=== PATIENT | male | born 1955 | race Caucasian/White ===

== ENCOUNTER → 2017-09-17 08:19 | Outpatient (CLI) | payer BC, SELFPAY ==
[2017-09-17 09:22] LABS: Hemoglobin A1c 7.7 % (4.2-6.3)
[2017-09-17 09:34] LABS: Anion Gap 8 (5-15); BUN 16 mg/dL (7-18); BUN/Creat Ratio 19.3 RATIO (10-20); Calcium,Total 8.9 mg/dL (8.5-10.1); Chloride 101 mmol/L (98-107); Creatinine, Serum 0.83 mg/dL (0.70-1.30); EST Glomerular Filtration Rate 99 mL/min (>60); Est Glom Filt Rate - Afr Amer 120 mL/min (>60); Glucose 117 mg/dL (74-106); PSA,Total - Annual Screen 0.26 ng/mL (0.00-4.00); Potassium 4.3 mmol/L (3.5-5.1); Sodium Level 137 mmol/L (136-145)
== END ==
PROVIDERS: Family Provider Family Medicine; PCP Family Medicine; Visit Provider Family Medicine
DX: E11.9 Type 2 diabetes mellitus without complications (principal); Z12.5 Encounter for screening for malignant neoplasm of prostate
CPT/HCPCS: 36415; 80048; 83036; 84153; G0103

== ENCOUNTER → 2018-09-16 07:00 | Outpatient (CLI) | payer BC, SELFPAY ==
[2018-09-16 08:41] LABS: Anion Gap 7 (5-15); BUN 14 mg/dL (7-18); BUN/Creat Ratio 16.1 RATIO (10-20); Calcium,Total 8.7 mg/dL (8.5-10.1); Chloride 100 mmol/L (98-107); Cholesterol 121 mg/dL (200); Creatinine, Serum 0.87 mg/dL (0.70-1.30); EST Glomerular Filtration Rate 93 mL/min (>60); Est Glom Filt Rate - Afr Amer 113 mL/min (>60); Glucose 141 mg/dL (74-106); High Density Lipoprotein 43 mg/dL; Potassium 4.4 mmol/L (3.5-5.1); Sodium Level 136 mmol/L (136-145); Thyroid Stim Hormone (TSH) 2.52 uIU/mL (0.358-3.74); Triglycerides 147 mg/dL; Very Low Density Lipoprotein 29 mg/dL (5-40)
[2018-09-16 09:02] LABS: Hemoglobin A1c 8.1 % (4.2-6.3)
[2018-09-18 09:38] LABS: Vitamin B12 250 pg/mL (211-911)
== END ==
PROVIDERS: Family Provider Family Medicine; PCP Family Medicine; Referring Provider Family Medicine; Visit Provider Family Medicine
DX: E11.40 Type 2 diabetes mellitus with diabetic neuropathy, unspecified (principal); I10 Essential (primary) hypertension; E78.00 Pure hypercholesterolemia, unspecified
CPT/HCPCS: 36415; 80048; 80061; 82607; 83036; 84443

== ENCOUNTER → 2019-02-23 16:53 | Outpatient (CLI) | payer MEDICARE, OTHER, SELFPAY ==
[2019-02-23 18:14] LABS: PSA,Total - Annual Screen 0.34 ng/mL (0.00-4.00)
== END ==
PROVIDERS: Family Provider Family Medicine; PCP Family Medicine; Referring Provider Family Medicine; Visit Provider Family Medicine
DX: Z12.5 Encounter for screening for malignant neoplasm of prostate (principal)
CPT/HCPCS: 36415; 84153; G0103

== ENCOUNTER → 2019-05-22 09:18 | Outpatient (CLI) | payer MEDICARE, OTHER, SELFPAY ==
[2019-05-22 14:07] LABS: Anion Gap 9 (5-15); BUN 19 mg/dL (7-18); BUN/Creat Ratio 20.6 RATIO (10-20); Calcium,Total 8.8 mg/dL (8.5-10.1); Chloride 103 mmol/L (98-107); Cholesterol 136 mg/dL (200); Creatinine, Serum 0.92 mg/dL (0.70-1.30); EST Glomerular Filtration Rate 87 mL/min (>60); Est Glom Filt Rate - Afr Amer 106 mL/min (>60); Glucose 114 mg/dL (74-106); High Density Lipoprotein 48 mg/dL; Potassium 4.2 mmol/L (3.5-5.1); Sodium Level 137 mmol/L (136-145); Triglycerides 108 mg/dL; Very Low Density Lipoprotein 22 mg/dL (5-40)
== END ==
PROVIDERS: Family Provider Family Medicine; PCP Family Medicine; Visit Provider Family Medicine
DX: E11.9 Type 2 diabetes mellitus without complications (principal); E78.00 Pure hypercholesterolemia, unspecified; I10 Essential (primary) hypertension
CPT/HCPCS: 36415; 80048; 80061; 83036

== ENCOUNTER → 2019-05-25 10:27 | Outpatient (CLI) | payer MEDICARE, OTHER, SELFPAY ==
[2019-05-25 12:45] LABS: Vitamin B12 292 pg/mL (211-911)
== END ==
PROVIDERS: Family Provider Family Medicine; PCP Family Medicine; Referring Provider Family Medicine; Visit Provider Family Medicine
DX: E11.40 Type 2 diabetes mellitus with diabetic neuropathy, unspecified (principal)
CPT/HCPCS: 36415; 82607

== ENCOUNTER → 2019-08-21 09:03 | Outpatient (CLI) | payer MEDICARE, OTHER, SELFPAY ==
[2019-08-21 10:44] LABS: Anion Gap 6 (5-15); BUN 14 mg/dL (7-18); BUN/Creat Ratio 14.9 RATIO (10-20); Calcium,Total 9.2 mg/dL (8.5-10.1); Chloride 104 mmol/L (98-107); Cholesterol 121 mg/dL (200); Creatinine, Serum 0.94 mg/dL (0.70-1.30); EST Glomerular Filtration Rate 85 mL/min (>60); Est Glom Filt Rate - Afr Amer 103 mL/min (>60); Glucose 118 mg/dL (74-106); High Density Lipoprotein 44 mg/dL; Potassium 4.7 mmol/L (3.5-5.1); Sodium Level 137 mmol/L (136-145); Triglycerides 142 mg/dL; Very Low Density Lipoprotein 28 mg/dL (5-40)
[2019-08-21 10:59] LABS: Hemoglobin A1c 7.8 % (4.2-6.3)
== END ==
PROVIDERS: PCP Family Medicine; Referring Provider Family Medicine; Visit Provider Family Medicine
DX: I10 Essential (primary) hypertension (principal); E11.9 Type 2 diabetes mellitus without complications; E78.00 Pure hypercholesterolemia, unspecified; Z12.5 Encounter for screening for malignant neoplasm of prostate
CPT/HCPCS: 36415; 80048; 80061; 83036

== ENCOUNTER → 2020-02-21 09:39 | Outpatient (CLI) | payer MEDICARE, OTHER, SELFPAY ==
[2020-02-21 12:43] LABS: Absolute Lymphocyte Count 1.67 X10^3/uL (0.83-4.51); Absolute Neutrophil Count 6.2 X10^3/uL (2.0-7.7); Basophil# 0.08 X10^3/uL; Basophil% 0.9 % (0-1); Eosinophil# 0.36 X10^3/uL; Eosinophils% 3.9 % (0-5); Hematocrit 41.7 % (40-54); Hemoglobin 13.2 g/dL (13.0-16.5); Lymphocyte # 1.67 X10^3/ul (4.0); Lymphocyte % 18.1 % (19-41); Mean Corp Hgb Conc 31.7 g/dL (32-36); Mean Corpuscular Hgb 29.3 pg (27.0-32.0); Mean Corpuscular Volume 92.5 fL (80-94); Mean Platelet Vol. 10.1 fl (6.2-12.0); Monocyte# 0.85 X10^3/uL; Monocyte% 9.2 % (0-10); NRBC Flagged by Analyzer 0 % (0-5); Neutrophil # 6.18 X10^3/uL (2.7-7.7); Neutrophil % 66.9 % (47-70); Platelet Count 300 K/mm3 (150-450); RBC Distribution Width CV 13.2 % (11.6-14.6); RBC Distribution Width SD 44.7 fl (35.1-43.9); Red Blood Count 4.51 M/mm3 (4.6-6.2); White Blood Count 9.2 K/mm3 (4.4-11.0)
[2020-02-21 13:24] LABS: ALB/GLOB Ratio 1.1 RATIO (0.9-2.4); AST(SGOT) 21 U/L (15-37); Alanine Aminotransfer ALT/SGPT 34 U/L (16-61); Albumin, Serum 3.9 g/dL (3.2-5.0); Alkaline Phosphatase 61 U/L (45-117); Anion Gap 6 (5-15); BUN 17 mg/dL (7-18); BUN/Creat Ratio 18.2 RATIO (10-20); Calcium,Total 9.2 mg/dL (8.5-10.1); Chloride 102 mmol/L (98-107); Cholesterol 156 mg/dL (200); Creatinine, Serum 0.93 mg/dL (0.70-1.30); EST Glomerular Filtration Rate 86 mL/min (>60); Est Glom Filt Rate - Afr Amer 104 mL/min (>60); Globulin 3.7 g/dL (2.2-4.2); Glucose 122 mg/dL (74-106); High Density Lipoprotein 50 mg/dL; Protein, Total 7.6 g/dL (6.4-8.2); Sodium Level 135 mmol/L (136-145); Thyroid Stim Hormone (TSH) 2.35 uIU/mL (0.358-3.74); Triglycerides 157 mg/dL; Very Low Density Lipoprotein 31 mg/dL (5-40)
[2020-02-21 13:34] LABS: Microalbumin,Random Urine 8.8 mg/L (NO RANGE EST.); Microalbumin:Creatinine Ratio 7.2 mg/g CRE (<30 mg/g CRE)
== END ==
PROVIDERS: PCP Family Medicine; Referring Provider Family Medicine; Visit Provider Family Medicine
DX: E11.65 Type 2 diabetes mellitus with hyperglycemia (principal); L03.90 Cellulitis, unspecified
CPT/HCPCS: 36415; 80053; 80061; 82043; 82570; 84443; 85025

== ENCOUNTER → 2020-03-31 07:03 | Outpatient (CLI) | payer MEDICARE, OTHER, SELFPAY ==
[2020-03-26 09:23] VITALS: BMI 32.1
--- NOTE | 2020-03-31 07:05 | CT_ITS ---
STUDY: CT ABDOMEN AND PELVIS WITH CONTRAST REASON FOR EXAM: Male, 65 years old. PAIN UMBILICAL AREA X2 MONTHS RADIATION DOSAGE (If Supplied By Facility): CTDIvol = ( 17.13 ) mGy, DLP = ( 1041.35 ) mGycm TECHNIQUE: Transaxial images were obtained from the dome of the diaphragm to the symphysis pubis with oral contrast. 100 mL ISOVUE-300 was administered. Sagittal and coronal images were reconstructed. Individualized dose optimization techniques were used for this CT. COMPARISON: None. FINDINGS: The visualized lung bases are unremarkable. The visualized portions of the heart are within normal limits. Normal liver. Normal gallbladder and extrahepatic biliary system. Normal spleen. Normal pancreas. Normal bilateral adrenal glands. No hydronephrosis or solid renal masses. There is a well-defined low-density simple cyst of the right kidney measuring 1.2 cm. Benign, incidental finding; no specific imaging workup recommended according to current ACR guidelines. Normal visualized stomach. Normal small intestine. Normal colon. The appendix is visualized and appears normal. There is diffuse atherosclerotic calcification of the abdominal aorta, without a demonstrated aneurysm. Normal inferior vena cava. Normal retroperitoneum. Normal urinary bladder. Normal abdominal wall. There are diffuse degenerative changes of the visualized lumbar spine. CT/Abdomen/Pelvis WITH Contrast IMPRESSION: 1. No abdominal wall hernia or intra-abdominal inflammatory process. No bowel wall thickening. Electronically Signed: Javad Chacon MD ([place]) at 8:05 EDT , Service support ,
[2020-03-31 07:15] LABS: EGFR FINGERSTICK > 60.0000 mL/min (>60)
== END ==
PROVIDERS: PCP Family Medicine; Referring Provider Surgery; Visit Provider Surgery
DX: R10.9 Unspecified abdominal pain (principal)
CPT/HCPCS: 74177; Q9967

== ENCOUNTER → 2020-04-21 | Outpatient (CLI) | payer MEDICARE, OTHER, SELFPAY | END | disposition home or self-care (01) | LOC: LABSPEC 16:12 | PROVIDERS: PCP Family Medicine; Referring Provider Family Medicine; Visit Provider Family Medicine | DX: Z20.828 Contact with and (suspected) exposure to other viral communicable diseases (principal) | CPT/HCPCS: 87635; U0003 ==

== ENCOUNTER → 2021-02-19 09:09 | Outpatient (CLI) | payer MEDICARE, OTHER, SELFPAY ==
[2021-02-19 10:06] LABS: Absolute Lymphocyte Count 1.61 X10^3/uL (0.83-4.51); Absolute Neutrophil Count 5.4 X10^3/uL (2.0-7.7); Basophil# 0.07 X10^3/uL; Basophil% 0.9 % (0-1); Eosinophil# 0.35 X10^3/uL; Eosinophils% 4.3 % (0-5); Hematocrit 40.9 % (40-54); Hemoglobin 13.1 g/dL (13.0-16.5); Lymphocyte # 1.61 X10^3/ul (0.83-4.51); Lymphocyte % 19.7 % (19-41); Mean Corpuscular Hgb 29.3 pg (27.0-32.0); Mean Corpuscular Volume 91.5 fL (80-94); Mean Platelet Vol. 10.1 fl (6.2-12.0); Monocyte# 0.72 X10^3/uL; Monocyte% 8.8 % (0-10); NRBC Flagged by Analyzer 0 % (0-5); Neutrophil # 5.38 X10^3/uL (2.7-7.7); Neutrophil % 65.7 % (47-70); Platelet Count 311 K/mm3 (150-450); RBC Distribution Width SD 43.7 fl (35.1-43.9); Red Blood Count 4.47 M/mm3 (4.6-6.2); White Blood Count 8.2 K/mm3 (4.4-11.0)
[2021-02-19 10:33] LABS: Microalbumin,Random Urine 5.9 mg/L (NO RANGE EST.); Microalbumin:Creatinine Ratio 8.2 mg/g CRE (<30 mg/g CRE)
[2021-02-19 10:38] LABS: Hemoglobin A1c 6.9 % (3.8-5.6)
[2021-02-19 10:49] LABS: ALB/GLOB Ratio 0.9 RATIO (0.9-2.4); AST(SGOT) 19 U/L (15-37); Alanine Aminotransfer ALT/SGPT 36 U/L (16-61); Albumin, Serum 3.5 g/dL (3.2-5.0); Alkaline Phosphatase 58 U/L (45-117); Anion Gap 6 (5-15); BUN 14 mg/dL (7-18); BUN/Creat Ratio 16.7 RATIO (10-20); Calcium,Total 8.6 mg/dL (8.5-10.1); Chloride 102 mmol/L (98-107); Cholesterol 130 mg/dL (200); Creatinine, Serum 0.84 mg/dL (0.70-1.30); EST Glomerular Filtration Rate 97 mL/min (>60); Est Glom Filt Rate - Afr Amer 117 mL/min (>60); Globulin 3.8 g/dL (2.2-4.2); Glucose 118 mg/dL (74-106); High Density Lipoprotein 44 mg/dL; Potassium 4.4 mmol/L (3.5-5.1); Protein, Total 7.3 g/dL (6.4-8.2); Sodium Level 135 mmol/L (136-145); Thyroid Stim Hormone (TSH) 2.22 uIU/mL (0.358-3.74); Triglycerides 148 mg/dL; Very Low Density Lipoprotein 30 mg/dL (5-40)
== END ==
PROVIDERS: PCP Family Medicine; Referring Provider Family Medicine; Visit Provider Family Medicine
DX: E11.65 Type 2 diabetes mellitus with hyperglycemia (principal); Z12.5 Encounter for screening for malignant neoplasm of prostate
CPT/HCPCS: 36415; 80053; 80061; 82043; 82570; 83036; 84153; 84443; 85025; G0103

== ENCOUNTER 2021-09-08 10:25 | Outpatient (RCR) | payer MEDICARE, OTHER, SELFPAY ==
[2021-09-08 10:39] VITALS: BP 131/67; PULSE 90; RESP 16; TEMP 36.6; BMI 32.6
--- NOTE | 2021-09-08 12:42 | PCM.WC.HP ---
History of Present Illness Date of Service: 09/08/21 Progress of Wound: This 66-year-old male presents to clinic for follow-up on bilateral foot ulcerations. He was seen in my office 1 week prior. He has history of diabetic foot ulcerations to plantar fifth met head, these have been present for approximately 1 month. Patient has a significant history of type 2 diabetes with peripheral neuropathy. He notes calluses the form in this area that subsequently cracked into fissures and started to bleed. He denies any constitutional symptoms at this time and reports resolution of any drainage from the site. He has been dressing the sites daily with Betadine paint dry sterile dressing and offloading them with reverse dancers pads and is regular shoe gear. Patient denies any leg cramping with ambulation or any rest pain. Patient denies any other issues at this time he has no pain associated with his wounds due to neuropathy. [facility], [facility] Medical History (Updated 09/08/21 @ 12:[address] Brian Toth DPM) Diabetes HTN (hypertension) Home Medications ezetimibe 10 mg-simvastatin 20 mg tablet 1 ea PO QHS 03/26/20 [History Last Taken Unknown] glipizide 2.5 mg-metformin 500 mg tablet 2 tab PO BID 03/26/20 [History Last Taken Unknown] lisinopril 20 mg tablet 1 ea PO DAILY 03/26/20 [History Last Taken Unknown] biotin 1 mcg PO DAILY 09/08/21 [History Last Taken Unknown] turmeric 1 mg PO DAILY 09/08/21 [History Last Taken Unknown] vitamin E [Vitamin E-400] 1 cap PO DAILY 09/08/21 [History Last Taken Unknown] Allergy/AdvReac Type Severity Reaction Status Date / Time No Known Allergies Allergy Verified 04/09/20 08:32 Social History (Updated 04/09/20 @ 08:[address] Brian Diallo MD) Smoking Status: Never smoker alcohol intake: current alcohol intake frequency: holidays/special occasions only Vital Signs Vital Signs Vital Signs: 09/08/21 10:39 Temperature 97.8 F Temperature Source Temporal Pulse Rate 90 Respiratory Rate 16 Blood Pressure 131/67 H Blood Pressure Mean 88 Blood Pressure Source Monitor Blood Pressure Position Sitting Oxygen Delivery Method Room Air Weight Weight: 97.522 kg Body Mass Index (BMI) 32.6 Physical Exam Narrative Patient alert oriented person place and time. Patient ambulates unassisted and regular shoe gear with offloading pads. Vascular: Dorsalis pedis posterior tibial pulses palpable 2 out of 4 bilateral lower extremity compartments. +1 pitting edema noted to bilateral lower extremities. Capillary fill time brisk to all digits. Digital hair growth present. Neurologic: Light touch protective sensation absent to bilateral feet reestablish mid tibia. Dermatologic full-thickness ulceration noted to the plantar fifth metatarsal head to bilateral feet. These noted to be full-thickness fissures. With periwound hyperkeratosis. No signs of infection or deep probing or undermining. Pre and post debridement measurements document nursing notes. Musculoskeletal: No pain with calf squeeze. Muscular strength full to bilateral lower extremity compartments. Forefoot varus deformity noted bilaterally. Debridement Note Debridement Note Post-Debridement Measurements and Additional Note: Post-Debridement Measurements/Treatment - Nurse 1 - General Ulcer Assessment Start: 09/08/21 10:39 Freq: Status: Active Protocol: SAVANNAH.LOWEXT Activity Type Activity Date Activity User E-Sign Co-Sign Detail Recorded Client Recorded Date Recorded By Document 09/08/21 10:39 [id number] 09/08/21 11:07 09/08/21 10:39 - Today's Visit Information Type of service Initial Visit Arrival Mode Ambulatory Transfer Assistance None Accompanied by self Patient Identification Verified (Name & Yes ) Patient Requires Transmission-Based No Precautions Safety Precautions NA Finger Stick Blood Sugar(mg/dl) (if 135 indicated): Blood Sugar Stated by Patient Height and Weight Height 5 ft 8 in Weight 97.522 kg Weight in Pounds 215.0 lbs Body Mass Index (BMI) 32.6 BMI Classification Obese BSA - Greg 2.11 Vital Signs Temperature (97.8 F-99.1 F) 97.8 F Temperature Source Temporal Pulse Rate (60-100) 90 Pulse Location Monitor Respiratory Rate (12-18) 16 Respiratory rate source Observation Oxygen Delivery Method Room Air Blood Pressure (90/60-120/80) 131/67 H Blood Pressure Mean 88 Source Monitor Position Sitting History Since Last Visit- (Skip if this is Patient's initial visit) Left Footwear Regular Shoe Right Footwear Regular Shoe Pain Scale: 0-10 Numeric Is Patient Pain Free? Yes Lower Extremity Assessment/ Foot Assessment/ Toe Nail Assessment Right -Claudication Assessment None -Popliteal Doppler Multiphasic -Posterior Tibial Palpable Yes -Posterior Tibial Doppler Multiphasic -Dorsalis Pedis Palpable Yes -Dorsalis Pedis Doppler Multiphasic -Hair Growth on Legs Yes -Hair Growth on Toes Yes -Temperature of Extremity Cold -Capillary Refill Greater than 3 Seconds -Dependent Rubor No -Blanched when Elevated N/A -Lipodermatosclerosis No -Other Deformity No -Prior Foot Ulcer No -Charcot Joint No -Prior Amputation No -Thick No -Discolored No -Deformed No -Improper Length & Hygeine No Left -Claudication Assessment None -Popliteal Doppler Multiphasic -Posterior Tibial Palpable Yes -Posterior Tibial Doppler Multiphasic -Dorsalis Pedis Palpable Yes -Dorsalis Pedis Doppler Multiphasic -Extremity Color Normal -Hair Growth on Legs Yes -Hair Growth on Toes Yes -Temperature of Extremity Cold -Capillary Refill Greater than 3 Seconds -Dependent Rubor No -Lipodermatosclerosis No -Thick No -Discolored No -Deformed No -Improper Length & Hygeine No Neuropathy Assessment Feet - Top Side and Bottom <Entered> (a) Communication Assessment Preferred language Ma[place] Hair Spring Winder Required No Able to Read Yes Able to Write Yes Communication Tools None Caregiver Communication Skills No Impairment Impairment Right Hearing Abillity Normal Left Hearing Abillity Normal Visual Assistive Devices None Teaching Assessment Preferences Verbal,Written, Audio/Visual, Demonstration Barriers to Learning None Readiness To Learn Excellent Willingness to Engage in Self Management High Activies Readiness to Engage in Self Management High Activities Anxiety Level Calm Cooperation Cooperative Perception Coherent Interest in Health Problem Asks Questions Education Importance Acknowledges Need Does Patient Smoke tobacco or other Yes substances Smoking Status Never smoker Is Patient Diabetic Yes Functional Assessment Recent Decline in Ability to Perform Denies Any Declines Assistive Device With Patient No Culture/Moravian/Breakfast Manager Cultural/Moravian Needs that may affect No Treatment Plan Would you allow our hospital supervisor precision optical elements to No meet you for the purpose of spiritual/ emotional support? Breakfast Manager to contact place of jain No Teaching: Wound Center *Welcome to the Wound Center -Person Taught Patient -Teaching Method Discussion -Response to teaching Verbalize understanding (a) 1 - - WC - Nurse 1 - General Ulcer Measurement Start: 09/08/21 10:39 Freq: Status: Active Protocol: Activity Type Activity Date Activity User E-Sign Co-Sign Detail Recorded Client Recorded Date Recorded By Document 09/08/21 11:07 MW [id number] 09/08/21 11:09 MW 09/08/21 11:07 Wound Center Nurse 1 # 2 right lateral plantar -Combined with other wound No -Current Size (cm) - Length 0.9 -Current Size (cm) - Width 0.2 -Current Size (cm) - Depth 0.3 -Total Square Cm 0.18 -Photo Taken No -Epithelialization None Present -Tunneling No -Undermining/Tunneling No -Circular Undermining No -Exudate Amt Medium -Exudate Type Serosanguineous -Wound Margin Thickened -Granulation Amt Small (1-33%) -Granulation Quality [place] -Slough/Fibrin No -Necrosis Amt Medium (34-66%) -Necrotic Tissue Type Adherent Slough -Structure Exposed N/A -Texture (Melody-wound Skin Appearance) Assessed,Callus -Moisture (Melody-wound Skin Appearance) Assessed,Dry/ Scaly -Color (Melody-wound Skin Appearance) Assessed -Temperature (Melody-wound Skin No Abnormality Appearance) (Pt Warm) -Tenderness on Palpation (Melody-wound No Skin Appearance) -Ulcer Cleansing Rinsed/ Irrigated with Saline -Foul Odor after Cleansing No -Anesthetic Used 4% Lidocaine Solution #1 left lateral plantar -Combined with other wound No -Current Size (cm) - Length 0.9 -Current Size (cm) - Width 0.3 -Current Size (cm) - Depth 0.3 -Total Square Cm 0.27 -Photo Taken No -Tunneling No -Undermining/Tunneling No -Exudate Amt Medium -Exudate Type Serosanguineous -Wound Margin Thickened -Granulation Amt Small (1-33%) -Granulation Quality [place] -Necrosis Amt Medium (34-66%) -Necrotic Tissue Type Adherent Slough -Structure Exposed N/A -Texture (Melody-wound Skin Appearance) No Abnormality, Callus,Scarring -Moisture (Melody-wound Skin Appearance) Assessed,Dry/ Scaly -Color (Melody-wound Skin Appearance) No Abnormality, Assessed -Temperature (Melody-wound Skin No Abnormality Appearance) (Pt Warm) -Tenderness on Palpation (Melody-wound No Skin Appearance) -Ulcer Cleansing Rinsed/ Irrigated with Saline -Foul Odor after Cleansing No -Anesthetic Used 4% Lidocaine Solution Lower Limb Edema Present Yes Right Calf (cm) 45.5 Right Ankle (cm) 25.5 Left Calf (cm) 45.2 Left Ankle (cm) 26.0 WC - Nurse 2 - General Ulcer CM Notes Start: 09/08/21 10:39 Freq: Status: Active Protocol: Activity Type Activity Date Activity User E-Sign Co-Sign Detail Recorded Client Recorded Date Recorded By Document 09/08/21 11:41 [id number] 09/08/21 11:44 [id number] 09/08/21 11:41 Wound Center Nurse 2 # 2 right lateral plantar -Time 11:42 -Correct Patient Yes -Correct Side, Site, Position Yes -Correct Procedure Yes -Procedure Performed Yes -Type of Procedure Debridement -Clinical Debridement Subcutaneous -Tissue Removed Subcutaneous -Post Debridement (cm) - Length 1.0 -Post Debridement (cm) - Width 0.2 -Post Debridement (cm) - Depth 0.3 -Total Square (Post) (cm) 0.20 -Area of Debridement (cm) - Length 1.0 -Area of Debridement (cm) - Width 0.2 -Total Square (Area) (cm) 0.20 -Tunneling No -Undermining/Tunneling No -Circular Undermining No -Wound/Ulcer Outcome Not Healed -Ulcer Cleansing Rinsed/ Irrigated with Saline -Foul Odor after Cleansing No -Bioengineered Tissue No -Bleeding Controlled with Pressure -Treatment Response Procedure Tolerated Well -Offloading No -Debridement - Subq, 1st 20sq cm No #1 left lateral plantar -Time 11:43 -Correct Patient Yes -Correct Side, Site, Position Yes -Correct Procedure Yes -Procedure Performed Yes -Type of Procedure Debridement -Clinical Debridement Subcutaneous -Tissue Removed Subcutaneous -Post Debridement (cm) - Length 1.0 -Post Debridement (cm) - Width 0.3 -Post Debridement (cm) - Depth 0.3 -Total Square (Post) (cm) 0.30 -Area of Debridement (cm) - Length 1.0 -Area of Debridement (cm) - Width 0.3 -Total Square (Area) (cm) 0.30 -Tunneling No -Undermining/Tunneling No -Circular Undermining No -Wound/Ulcer Outcome Not Healed -Ulcer Cleansing Rinsed/ Irrigated with Saline -Foul Odor after Cleansing No -Bioengineered Tissue No -Bleeding Controlled with Pressure -Treatment Response Procedure Tolerated Well -Offloading No -Debridement - Subq, 1st 20sq cm Yes Pain Scale: 0-10 Numeric Is Patient Pain Free? Yes - Nurse 3 - General Ulcer D/C NN Start: 09/08/21 10:39 Freq: Status: Active Protocol: Activity Type Activity Date Activity User E-Sign Co-Sign Detail Recorded Client Recorded Date Recorded By Document 09/08/21 11:52 [id number] 09/08/21 11:53 09/08/21 11:52 Wound Care Nurse 3 # 2 right lateral plantar -Ulcer Cleansing Rinsed/ Irrigated with Saline -Primary Dressing Applied Promogran Rita Matter -Primary Dressing Covered/Secured with Dry Gauze, Secured with Tape -Promogran Rita Matter 1 #1 left lateral plantar -Ulcer Cleansing Rinsed/ Irrigated with Saline -Primary Dressing Covered/Secured with Dry Gauze, Secured with Tape Pain Scale: 0-10 Numeric Is Patient Pain Free? Yes WC - Visit Discharge Discharge Condition Stable Ambulatory Status Ambulatory Transportation Private Auto Assessment/Plan Assessment/Plan (1) Non-pressure chronic ulcer of other part of right foot with fat layer exposed: CODE(S): L97.512 - Non-pressure chronic ulcer of other part of right foot with fat layer exposed PLAN: Patient examined evaluated, all findings cussed with patient in detail. Patient radiographs in our office demonstrated no signs of osseous infection. Clinically patient has no signs of infection. Wounds are improved at this time from 1 week prior. Wounds bilateral feet were excisionally debrided down to including level of subcutaneous tissue of all nonviable tissue with a 5 mm dermal curette and 15 blade without incident. Hemostasis obtained with light compression. Anesthesia none due to diabetic neuropathy. Patient tolerated procedure well. Wounds were flushed with normal sterile saline and dressed with Rita dry sterile dressing. At this time we will continue offloading with reverse dancers pads and regular shoe gear. He will be contacted to schedule diabetic shoe fitting by our office. We will consider total contact casting or advanced wound care product such as epifix if there are any delays in healing. At current there are no signs of vascular disease so we will hold off any vascular studies we will can consider nutritional supplementation with Glucerna on his follow-up appointment. (2) Non-pressure chronic ulcer of other part of left foot with fat layer exposed: CODE(S): L97.522 - Non-pressure chronic ulcer of other part of left foot with fat layer exposed (3) Type 2 diabetes mellitus with diabetic polyneuropathy: CODE(S): E11.42 - Type 2 diabetes mellitus with diabetic polyneuropathy
--- NOTE | 2021-09-08 12:47 | PCM.WC.PN ---
History of Present Illness Date of Service: 09/14/21 Progress of Wound: This 66-year-old male presents to clinic for follow-up on bilateral foot ulcerations. He was seen in my office 1 week prior. He has history of diabetic foot ulcerations to plantar fifth met head, these have been present for approximately 1 month. Patient has a significant history of type 2 diabetes with peripheral neuropathy. He notes calluses the form in this area that subsequently cracked into fissures and started to bleed. He denies any constitutional symptoms at this time and reports resolution of any drainage from the site. He has been dressing the sites daily with Betadine paint dry sterile dressing and offloading them with reverse dancers pads and is regular shoe gear. Patient denies any leg cramping with ambulation or any rest pain. Patient denies any other issues at this time he has no pain associated with his wounds due to neuropathy. Objective Data Objective Data Vital Signs: Vital Signs Temp Pulse Resp BP 97.8 F 90 16 131/67 H 09/08/21 10:39 09/08/21 10:39 09/08/21 10:39 09/08/21 10:39 Oxygen Delivery Method Room Air Weight: 97.522 kg Body Mass Index (BMI) 32.6 Physical Exam Narrative Patient alert oriented person place and time. Patient ambulates unassisted and regular shoe gear with offloading pads. Vascular: Dorsalis pedis posterior tibial pulses palpable 2 out of 4 bilateral lower extremity compartments. +1 pitting edema noted to bilateral lower extremities. Capillary fill time brisk to all digits. Digital hair growth present. Neurologic: Light touch protective sensation absent to bilateral feet reestablish mid tibia. Dermatologic full-thickness ulceration noted to the plantar fifth metatarsal head to bilateral feet. These noted to be full-thickness fissures. With periwound hyperkeratosis. No signs of infection or deep probing or undermining. Pre and post debridement measurements document nursing notes. Musculoskeletal: No pain with calf squeeze. Muscular strength full to bilateral lower extremity compartments. Forefoot varus deformity noted bilaterally. Debridement Note Debridement Note Post-Debridement Measurements and Additional Note: Post-Debridement Measurements/Treatment SAVANNAH - Nurse 1 - General Ulcer Assessment Start: 09/08/21 10:39 Freq: Status: Active Protocol: MILA Activity Type Activity Date Activity User E-Sign Co-Sign Detail Recorded Client Recorded Date Recorded By Document 09/08/21 10:39 [id number] 09/08/21 11:07 MW 09/08/21 10:39 WC - Today's Visit Information Type of service Initial Visit Arrival Mode Ambulatory Transfer Assistance None Accompanied by self Patient Identification Verified (Name & Yes ) Patient Requires Transmission-Based No Precautions Safety Precautions NA Finger Stick Blood Sugar(mg/dl) (if 135 indicated): Blood Sugar Stated by Patient Height and Weight Height 5 ft 8 in Weight 97.522 kg Weight in Pounds 215.0 lbs Body Mass Index (BMI) 32.6 BMI Classification Obese BSA - Greg 2.11 Vital Signs Temperature (97.8 F-99.1 F) 97.8 F Temperature Source Temporal Pulse Rate (60-100) 90 Pulse Location Monitor Respiratory Rate (12-18) 16 Respiratory rate source Observation Oxygen Delivery Method Room Air Blood Pressure (90/60-120/80) 131/67 H Blood Pressure Mean (mm Hg) 88 Source Monitor Position Sitting History Since Last Visit- (Skip if this is Patient's initial visit) Left Footwear Regular Shoe Right Footwear Regular Shoe Pain Scale: 0-10 Numeric Is Patient Pain Free? Yes Lower Extremity Assessment/ Foot Assessment/ Toe Nail Assessment Right -Claudication Assessment None -Popliteal Doppler Multiphasic -Posterior Tibial Palpable Yes -Posterior Tibial Doppler Multiphasic -Dorsalis Pedis Palpable Yes -Dorsalis Pedis Doppler Multiphasic -Hair Growth on Legs Yes -Hair Growth on Toes Yes -Temperature of Extremity Cold -Capillary Refill Greater than 3 Seconds -Dependent Rubor No -Blanched when Elevated N/A -Lipodermatosclerosis No -Other Deformity No -Prior Foot Ulcer No -Charcot Joint No -Prior Amputation No -Thick No -Discolored No -Deformed No -Improper Length & Hygeine No Left -Claudication Assessment None -Popliteal Doppler Multiphasic -Posterior Tibial Palpable Yes -Posterior Tibial Doppler Multiphasic -Dorsalis Pedis Palpable Yes -Dorsalis Pedis Doppler Multiphasic -Extremity Color Normal -Hair Growth on Legs Yes -Hair Growth on Toes Yes -Temperature of Extremity Cold -Capillary Refill Greater than 3 Seconds -Dependent Rubor No -Lipodermatosclerosis No -Thick No -Discolored No -Deformed No -Improper Length & Hygeine No Neuropathy Assessment Feet - Top Side and Bottom <Entered> (a) Communication Assessment Preferred language [employer] As[employer]er Required No Able to Read Yes Able to Write Yes Communication Tools None Caregiver Communication Skills No Impairment Impairment Right Hearing Abillity Normal Left Hearing Abillity Normal Visual Assistive Devices None Teaching Assessment Preferences Verbal,Written, Audio/Visual, Demonstration Barriers to Learning None Readiness To Learn Excellent Willingness to Engage in Self Management High Activies Readiness to Engage in Self Management High Activities Anxiety Level Calm Cooperation Cooperative Perception Coherent Interest in Health Problem Asks Questions Education Importance Acknowledges Need Does Patient Smoke tobacco or other Yes substances Smoking Status Never smoker Is Patient Diabetic Yes Functional Assessment Recent Decline in Ability to Perform Denies Any Declines Assistive Device With Patient No Culture/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 Private Branch Exchange Operator to contact place of yazidism No Teaching: Wound Center *Welcome to the Wound Center -Person Taught Patient -Teaching Method Discussion -Response to teaching Verbalize understanding (a) 1 - - - Nurse 1 - General Ulcer Measurement Start: 09/08/21 10:39 Freq: Status: Active Protocol: Activity Type Activity Date Activity User E-Sign Co-Sign Detail Recorded Client Recorded Date Recorded By Document 09/08/21 11:07 MW [id number] 09/08/21 11:09 MW 09/08/21 11:07 Wound Center Nurse 1 # 2 right lateral plantar -Combined with other wound No -Current Size (cm) - Length 0.9 -Current Size (cm) - Width 0.2 -Current Size (cm) - Depth 0.3 -Total Square Cm 0.18 -Photo Taken No -Epithelialization None Present -Tunneling No -Undermining/Tunneling No -Circular Undermining No -Exudate Amt Medium -Exudate Type Serosanguineous -Wound Margin Thickened -Granulation Amt Small (1-33%) -Granulation Quality [place] -Slough/Fibrin No -Necrosis Amt Medium (34-66%) -Necrotic Tissue Type Adherent Slough -Structure Exposed N/A -Texture (Melody-wound Skin Appearance) Assessed,Callus -Moisture (Melody-wound Skin Appearance) Assessed,Dry/ Scaly -Color (Melody-wound Skin Appearance) Assessed -Temperature (Melody-wound Skin No Abnormality Appearance) (Pt Warm) -Tenderness on Palpation (Melody-wound No Skin Appearance) -Ulcer Cleansing Rinsed/ Irrigated with Saline -Foul Odor after Cleansing No -Anesthetic Used 4% Lidocaine Solution #1 left lateral plantar -Combined with other wound No -Current Size (cm) - Length 0.9 -Current Size (cm) - Width 0.3 -Current Size (cm) - Depth 0.3 -Total Square Cm 0.27 -Photo Taken No -Tunneling No -Undermining/Tunneling No -Exudate Amt Medium -Exudate Type Serosanguineous -Wound Margin Thickened -Granulation Amt Small (1-33%) -Granulation Quality [place] -Necrosis Amt Medium (34-66%) -Necrotic Tissue Type Adherent Slough -Structure Exposed N/A -Texture (Melody-wound Skin Appearance) No Abnormality, Callus,Scarring -Moisture (Melody-wound Skin Appearance) Assessed,Dry/ Scaly -Color (Melody-wound Skin Appearance) No Abnormality, Assessed -Temperature (Melody-wound Skin No Abnormality Appearance) (Pt Warm) -Tenderness on Palpation (Melody-wound No Skin Appearance) -Ulcer Cleansing Rinsed/ Irrigated with Saline -Foul Odor after Cleansing No -Anesthetic Used 4% Lidocaine Solution Lower Limb Edema Present Yes Right Calf (cm) 45.5 Right Ankle (cm) 25.5 Left Calf (cm) 45.2 Left Ankle (cm) 26.0 WC - Nurse 2 - General Ulcer CM Notes Start: 09/08/21 10:39 Freq: Status: Active Protocol: Activity Type Activity Date Activity User E-Sign Co-Sign Detail Recorded Client Recorded Date Recorded By Document 09/08/21 11:41 GATITO [id number] 09/08/21 11:44 GATITO 09/08/21 11:41 Wound Center Nurse 2 # 2 right lateral plantar -Time 11:42 -Correct Patient Yes -Correct Side, Site, Position Yes -Correct Procedure Yes -Procedure Performed Yes -Type of Procedure Debridement -Clinical Debridement Subcutaneous -Tissue Removed Subcutaneous -Post Debridement (cm) - Length 1.0 -Post Debridement (cm) - Width 0.2 -Post Debridement (cm) - Depth 0.3 -Total Square (Post) (cm) 0.20 -Area of Debridement (cm) - Length 1.0 -Area of Debridement (cm) - Width 0.2 -Total Square (Area) (cm) 0.20 -Tunneling No -Undermining/Tunneling No -Circular Undermining No -Wound/Ulcer Outcome Not Healed -Ulcer Cleansing Rinsed/ Irrigated with Saline -Foul Odor after Cleansing No -Bioengineered Tissue No -Bleeding Controlled with Pressure -Treatment Response Procedure Tolerated Well -Offloading No -Debridement - Subq, 1st 20sq cm No #1 left lateral plantar -Time 11:43 -Correct Patient Yes -Correct Side, Site, Position Yes -Correct Procedure Yes -Procedure Performed Yes -Type of Procedure Debridement -Clinical Debridement Subcutaneous -Tissue Removed Subcutaneous -Post Debridement (cm) - Length 1.0 -Post Debridement (cm) - Width 0.3 -Post Debridement (cm) - Depth 0.3 -Total Square (Post) (cm) 0.30 -Area of Debridement (cm) - Length 1.0 -Area of Debridement (cm) - Width 0.3 -Total Square (Area) (cm) 0.30 -Tunneling No -Undermining/Tunneling No -Circular Undermining No -Wound/Ulcer Outcome Not Healed -Ulcer Cleansing Rinsed/ Irrigated with Saline -Foul Odor after Cleansing No -Bioengineered Tissue No -Bleeding Controlled with Pressure -Treatment Response Procedure Tolerated Well -Offloading No -Debridement - Subq, 1st 20sq cm Yes Pain Scale: 0-10 Numeric Is Patient Pain Free? Yes - Nurse 3 - General Ulcer D/C NN Start: 09/08/21 10:39 Freq: Status: Active Protocol: Activity Type Activity Date Activity User E-Sign Co-Sign Detail Recorded Client Recorded Date Recorded By Document 09/08/21 11:52 CHRISTINA [id number] 09/08/21 11:53 CHRISTINA 09/08/21 11:52 Wound Care Nurse 3 # 2 right lateral plantar -Ulcer Cleansing Rinsed/ Irrigated with Saline -Primary Dressing Applied Promogran Rita Matter -Primary Dressing Covered/Secured with Dry Gauze, Secured with Tape -Promogran Rita Matter 1 #1 left lateral plantar -Ulcer Cleansing Rinsed/ Irrigated with Saline -Primary Dressing Covered/Secured with Dry Gauze, Secured with Tape Pain Scale: 0-10 Numeric Is Patient Pain Free? Yes - Visit Discharge Discharge Condition Stable Ambulatory Status Ambulatory Transportation Private Auto Assessment/Plan Assessment/Plan (1) Non-pressure chronic ulcer of other part of right foot with fat layer exposed: CODE(S): L97.512 - Non-pressure chronic ulcer of other part of right foot with fat layer exposed PLAN: Patient examined evaluated, all findings cussed with patient in detail. Patient radiographs in our office demonstrated no signs of osseous infection. Clinically patient has no signs of infection. Wounds are improved at this time from 1 week prior. Wounds bilateral feet were excisionally debrided down to including level of subcutaneous tissue of all nonviable tissue with a 5 mm dermal curette and 15 blade without incident. Hemostasis obtained with light compression. Anesthesia none due to diabetic neuropathy. Patient tolerated procedure well. Wounds were flushed with normal sterile saline and dressed with Rita dry sterile dressing. At this time we will continue offloading with reverse dancers pads and regular shoe gear. He will be contacted to schedule diabetic shoe fitting by our office. We will consider total contact casting or advanced wound care product such as epifix if there are any delays in healing. At current there are no signs of vascular disease so we will hold off any vascular studies we will can consider nutritional supplementation with Glucerna on his follow-up appointment. (2) Non-pressure chronic ulcer of other part of left foot with fat layer exposed: CODE(S): L97.522 - Non-pressure chronic ulcer of other part of left foot with fat layer exposed (3) Type 2 diabetes mellitus with diabetic polyneuropathy: CODE(S): E11.42 - Type 2 diabetes mellitus with diabetic polyneuropathy
== END 2021-09-10 23:59 | disposition home or self-care (01) ==
LOC: WC 10:25
PROVIDERS: Visit Provider Podiatrist
DX: E11.621 Type 2 diabetes mellitus with foot ulcer (principal); L97.512 Non-pressure chronic ulcer of other part of right foot with fat layer exposed; L97.522 Non-pressure chronic ulcer of other part of left foot with fat layer exposed; E11.42 Type 2 diabetes mellitus with diabetic polyneuropathy; R60.0 Localized edema; I10 Essential (primary) hypertension; Z79.84 Long term (current) use of oral hypoglycemic drugs; Z79.899 Other long term (current) drug therapy
CPT/HCPCS: 11042; 99213; G0463

== ENCOUNTER 2021-09-17 08:55 | Outpatient (CLI) | payer MEDICARE, OTHER, SELFPAY ==
--- NOTE | 2021-09-17 09:04 | ART_ITS ---
Reason For Study: I73.9 Procedure A bilateral lower extremity continuous wave Doppler with analog waveform analysis,segmental pressures,and ankle brachial indexes with exercise. Left Segmental Pressures Left brachial= 146mmHg. Left posterior tibial artery = 169mmHg. Left dorsalis pedis artery = 157mmHg. Left digit = 78 mmHg. The left dorsalis pedis waveforms are triphasic. The left posterior tibial artery waveforms are triphasic. Right Segmental Pressures Right brachial= 142mmHg. Right posterior tibial artery = 189mmHg. Right dorsalis pedis artery = 154mmHg. Right digit = 54 mmHg. The right dorsalis pedis waveforms are triphasic. The right posterior tibial artery waveforms are triphasic. Indices The right ankle brachial index by the dorsalis pedis is 1.05. The right ankle brachial index by the posterior tibial artery is 1.29. The right digital-brachial index is .37. The right post exercise ankle brachial index is 1.29. The left ankle brachial index by the dorsalis pedis is 1.08. The left ankle brachial index by the posterior tibial artery is 1.16. The left digital-brachial index is .53. The left post exercise ankle brachial index is 1.26. VL/Lower Ext Art Exam w/ Exercise Interpretation Summary Triphasic Doppler waveforms are noted at ankle level bilaterally. Pulse volume recordings are diminished at digital level bilaterally. Resting ankle-brachial indices are nor mal bilaterally. The right digital-brachial index is moderately diminished. The left digital-brachia l index is mildly diminished. The patient was ambulated at a moderate pace for 5 minutes, followi ng which ankle pressures augmented bilaterally, a normal physiological response. Arterial flow appears normal at ankle level bilaterally. 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 There is evidence of mild parish rial occlusive disease at digital level on the left. Ordering Physician: Brian Toth Performed By: Leo Hicks RVT
== END 2021-09-17 23:59 | disposition home or self-care (01) ==
LOC: CVS 08:56
PROVIDERS: Visit Provider Podiatrist
DX: I73.9 Peripheral vascular disease, unspecified (principal)
CPT/HCPCS: 93924

== ENCOUNTER 2021-09-24 08:15 | Outpatient (RCR) | payer MEDICARE, OTHER, SELFPAY ==
[2021-09-11 00:54] VITALS: BP 131/67; PULSE 90; RESP 16; TEMP 36.6; BMI 32.6
[2021-09-15 11:06] VITALS: BP 135/71; PULSE 87; RESP 16; TEMP 36.3; BMI 32.6
--- NOTE | 2021-09-15 11:43 | PCM.WC.PN ---
History of Present Illness Date of Service: 09/15/21 Progress of Wound: This 66-year-old male presents to clinic for follow-up on bilateral foot ulcerations. He was seen in my office 1 week prior. He has history of diabetic foot ulcerations to plantar fifth met head these have been present for approximately 1 month. Patient has a significant history of type 2 diabetes with peripheral neuropathy. He notes calluses that form in this area that subsequently cracked into fissures and started to bleed. He denies any constitutional symptoms at this time and reports resolution of any drainage from the site. He has been dressing the sites daily with Betadine paint dry sterile dressing and offloading them with reverse dancers pads and is regular shoe gear. Patient denies any leg cramping with ambulation or any rest pain. Patient denies any other issues at this time he has no pain associated with his wounds due to neuropathy. Objective Data Objective Data Vital Signs: Vital Signs Temp Pulse Resp BP 97.3 F L 87 16 135/71 H 09/15/21 11:06 09/15/21 11:06 09/15/21 11:06 09/15/21 11:06 Oxygen Delivery Method Room Air Weight: 97.522 kg Body Mass Index (BMI) 32.6 Physical Exam Narrative Patient alert oriented person place and time. Patient ambulates unassisted and regular shoe gear with offloading pads. Vascular: Dorsalis pedis posterior tibial pulses palpable 2 out of 4 bilateral lower extremity compartments. +1 pitting edema noted to bilateral lower extremities. Capillary fill time brisk to all digits. Digital hair growth present. Neurologic: Light touch protective sensation absent to bilateral feet reestablish mid tibia. Dermatologic full-thickness ulceration noted to the plantar fifth metatarsal head to bilateral feet. These noted to be full-thickness fissures. With periwound hyperkeratosis. No signs of infection or deep probing or undermining. Pre and post debridement measurements document nursing notes. Musculoskeletal: No pain with calf squeeze. Muscular strength full to bilateral lower extremity compartments. Forefoot varus deformity noted bilaterally. 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 ) Arrival Mode Ambulatory Transfer Assistance None Accompanied by Patient Identification Verified (Name & Yes ) Patient Requires Transmission-Based No Precautions Safety Precautions NA Finger Stick Blood Sugar(mg/dl) (if 160 indicated): Blood Sugar Stated by Patient Height and Weight Body Mass Index (BMI) 32.6 BMI Classification Obese Vital Signs Temperature (97.8 F-99.1 F) 97.3 F L Temperature Source Temporal Pulse Rate (60-100) 87 Pulse Location Monitor Respiratory Rate (12-18) 16 Respiratory rate source Observation Oxygen Delivery Method Room Air Blood Pressure (90/60-120/80) 135/71 H Blood Pressure Mean (mm Hg) 92 Source Monitor Position Sitting Blood Pressure Location Left Arm History Since Last Visit- (Skip if this is Patient's initial visit) Have you changed medications since your No last visit? Any new allergies or adverse reactions No Had a fall/change in ADL's that may No increase risk of falls Signs or symptoms of abuse and/or No neglect since last visit Have you been in the hospital since your No last visit? Has dressing in place as prescribed Yes Has compression in place as prescribed N/A Has offloadiing in place as prescribed N/A Experienced any changes in pain level or No management Left Footwear Regular Shoe Right Footwear Regular Shoe Pain Scale: 0-10 Numeric Is Patient Pain Free? Yes - Nurse 1 - General Ulcer Measurement Start: 09/15/21 11:06 Freq: Status: Active Protocol: Activity Type Activity Date Activity User E-Sign Co-Sign Detail Recorded Client Recorded Date Recorded By Document 09/15/21 11:06 [id number] 09/15/21 11:17 09/15/21 11:06 Wound Center Nurse 1 # 2 right lateral plantar -Combined with other wound No -Current Size (cm) - Length 0.1 -Current Size (cm) - Width 0.1 -Current Size (cm) - Depth 0.1 -Total Square Cm 0.01 -Date of Last Picture (Recall this 09/15/21 field) -Photo Taken Yes -Epithelialization Small 1-33% -Tunneling No -Undermining/Tunneling No -Circular Undermining No -Exudate Amt None Present -Wound Margin Flat & Intact -Granulation Amt None Present (0 %) -Granulation Quality N/A -Slough/Fibrin Yes -Necrosis Amt Large (67-100%) -Necrotic Tissue Type Adherent Slough -Structure Exposed N/A -Texture (Melody-wound Skin Appearance) Assessed,Callus -Moisture (Melody-wound Skin Appearance) No Abnormality, Assessed -Color (Melody-wound Skin Appearance) No Abnormality, Assessed -Temperature (Melody-wound Skin No Abnormality Appearance) (Pt Warm) -Tenderness on Palpation (Melody-wound No Skin Appearance) -Ulcer Cleansing Rinsed/ Irrigated with Saline -Foul Odor after Cleansing No #1 left lateral plantar -Combined with other wound No -Current Size (cm) - Length 0.1 -Current Size (cm) - Width 0.1 -Current Size (cm) - Depth 0.1 -Total Square Cm 0.01 -Date of Last Picture (Recall this 09/15/21 field) -Photo Taken Yes -Epithelialization None Present -Tunneling No -Undermining/Tunneling No -Circular Undermining No -Exudate Amt None Present -Wound Margin Flat & Intact -Granulation Amt None Present (0 %) -Granulation Quality N/A -Slough/Fibrin Yes -Necrosis Amt Large (67-100%) -Necrotic Tissue Type Adherent Slough -Structure Exposed N/A -Texture (Melody-wound Skin Appearance) Assessed,Callus -Moisture (Melody-wound Skin Appearance) No Abnormality, Assessed -Color (Melody-wound Skin Appearance) No Abnormality, Assessed -Temperature (Melody-wound Skin No Abnormality Appearance) (Pt Warm) -Tenderness on Palpation (Melody-wound No Skin Appearance) -Ulcer Cleansing Rinsed/ Irrigated with Saline -Foul Odor after Cleansing No Lower Limb Edema Present No WC - Nurse 2 - General Ulcer CM Notes Start: 09/15/21 11:06 Freq: Status: Active Protocol: Activity Type Activity Date Activity User E-Sign Co-Sign Detail Recorded Client Recorded Date Recorded By Document 09/15/21 11:21 GATITO [id number] 09/15/21 11:27 GATITO 09/15/21 11:21 Wound Center Nurse 2 # 2 right lateral plantar -Time 11:21 -Correct Patient Yes -Correct Side, Site, Position Yes -Correct Procedure Yes -Procedure Performed Yes -Type of Procedure Debridement -Clinical Debridement Subcutaneous -Tissue Removed Subcutaneous -Post Debridement (cm) - Length 0.4 -Post Debridement (cm) - Width 0.1 -Post Debridement (cm) - Depth 0.1 -Total Square (Post) (cm) 0.04 -Area of Debridement (cm) - Length 0.4 -Area of Debridement (cm) - Width 0.1 -Total Square (Area) (cm) 0.04 -Tunneling No -Undermining/Tunneling No -Circular Undermining No -Wound/Ulcer Outcome Not Healed -Ulcer Cleansing Rinsed/ Irrigated with Saline -Foul Odor after Cleansing No -Bioengineered Tissue No -Bleeding Controlled with Pressure -Treatment Response Procedure Tolerated Well -Offloading No -Debridement - Subq, 1st 20sq cm No #1 left lateral plantar -Time 11:25 -Correct Patient Yes -Correct Side, Site, Position Yes -Correct Procedure Yes -Procedure Performed Yes -Type of Procedure Debridement -Clinical Debridement Subcutaneous -Tissue Removed Subcutaneous -Post Debridement (cm) - Length 0.5 -Post Debridement (cm) - Width 0.1 -Post Debridement (cm) - Depth 0.1 -Total Square (Post) (cm) 0.05 -Area of Debridement (cm) - Length 0.5 -Area of Debridement (cm) - Width 0.1 -Total Square (Area) (cm) 0.05 -Tunneling No -Undermining/Tunneling No -Circular Undermining No -Wound/Ulcer Outcome Not Healed -Ulcer Cleansing Rinsed/ Irrigated with Saline -Foul Odor after Cleansing No -Bioengineered Tissue No -Bleeding Controlled with Pressure -Treatment Response Procedure Tolerated Well -Offloading No -Debridement - Subq, 1st 20sq cm Yes Pain Scale: 0-10 Numeric Is Patient Pain Free? Yes WC - Nurse 3 - General Ulcer D/C NN Start: 09/15/21 11:06 Freq: Status: Active Protocol: Activity Type Activity Date Activity User E-Sign Co-Sign Detail Recorded Client Recorded Date Recorded By Document 09/15/21 11:35 CHRISTINA [id number] 09/15/21 11:36 CHRISTINA 09/15/21 11:35 Wound Care Nurse 3 # 2 right lateral plantar -Ulcer Cleansing Rinsed/ Irrigated with Saline -Primary Dressing Applied Promogran Rita Matter -Primary Dressing Covered/Secured with Dry Gauze, Secured with Tape -Promogran Rita Matter 1 #1 left lateral plantar -Primary Dressing Covered/Secured with Dry Gauze, Secured with Tape Right -Tubular Bandage Single Layer -Size of Tubigrip Used Size E -Size E ($) 1 Left -Tubular Bandage Single Layer -Size of Tubigrip Used Size E -Size E ($) 1 Pain Scale: 0-10 Numeric Is Patient Pain Free? Yes WC - Visit Discharge Discharge Condition Stable Ambulatory Status Ambulatory Transportation Private Auto Accompanied by Assessment/Plan Assessment/Plan (1) Non-pressure chronic ulcer of other part of left foot with fat layer exposed: CODE(S): L97.522 - Non-pressure chronic ulcer of other part of left foot with fat layer exposed (2) Non-pressure chronic ulcer of other part of right foot with fat layer exposed: CODE(S): L97.512 - Non-pressure chronic ulcer of other part of right foot with fat layer exposed PLAN: Patient examined evaluated, all findings cussed with patient in detail. Clinically patient has no signs of infection. Wounds are significantly improved at this time from 1 week prior. Wounds bilateral feet were excisionally debrided down to including level of subcutaneous tissue of all nonviable tissue with a 5 mm dermal curette and 15 blade without incident. Hemostasis obtained with light compression. Anesthesia none due to diabetic neuropathy. Patient tolerated procedure well. Wounds were flushed with normal sterile saline and dressed with Rita with dry sterile dressing. At this time we will continue offloading with reverse dancers pads and regular shoe gear. He will be contacted to schedule diabetic shoe fitting by our office. We will consider total contact casting or advanced wound care product such as epifix if there are any delays in healing. At current there are no signs of vascular disease so we will hold off any vascular studies we will can consider nutritional supplementation with Glucerna on his follow-up appointment. (3) Type 2 diabetes mellitus with diabetic polyneuropathy: CODE(S): E11.42 - Type 2 diabetes mellitus with diabetic polyneuropathy
[2021-09-24 08:22] VITALS: BP 134/74; PULSE 87; TEMP 35.6; BMI 32.6
--- NOTE | 2021-09-24 08:47 | PN.PCM_ITS ---
History of Present Illness Date of Service: 09/24/21 Progress of Wound: This 66-year-old male presents to clinic for follow-up on bilateral foot ulcerations. He denies constitutional loss currently. He notes improvement of his wounds. Denies any drainage since his previous visit and feels that his wounds are healed. He has been compliant with treatment. He also had his vascular studies done. Objective Data Objective Data Vital Signs: Vital Signs Temp Pulse Resp BP 96.0 F L 87 16 134/74 H 09/24/21 08:22 09/24/21 08:22 09/15/21 11:06 09/24/21 08:22 Oxygen Delivery Method Room Air Weight: 97.522 kg Body Mass Index (BMI) 32.6 Physical Exam Narrative Patient alert oriented person place and time. Patient ambulates unassisted and regular shoe gear with offloading pads. Vascular: Dorsalis pedis posterior tibial pulses palpable 2 out of 4 bilateral lower extremity compartments. +1 pitting edema noted to bilateral lower extremities. Capillary fill time brisk to all digits. Digital hair growth present. Neurologic: Light touch protective sensation absent to bilateral feet reestab anh mid tibia. Dermatologic: Wounds healed to bilateral feet, no signs of infection. Musculoskeletal: No pain with calf squeeze. Muscular strength full to bilateral lower extremity compartments. Forefoot varus deformity noted bilaterally. Debridement Note Debridement Note Post-Debridement Measurements and Additional Note: Post-Debridement Measurements/Treatment - Nurse 1 - General Ulcer Assessment Start: 09/15/21 11:06 Freq: Status: Active Protocol: .LOWEXT Activity Type Activity Date Activity User E-Sign Co-Sign Detail Recorded Client Recorded Date Recorded By Document 09/15/21 11:06 [id number] 09/15/21 11:17 Document 09/24/21 08:22 KR [id number] 09/24/21 08:27 KR 09/15/21 09/24/21 11:06 08:22 - Today's Visit Information Type of service Follow-up Visit Follow-up Visit (Physician/TISSUE SPECIALIST (Physician/TISSUE SPECIALIST ) ) Arrival Mode Ambulatory Ambulatory Transfer Assistance None Accompanied by Patient Identification Verified (Name & Yes Yes ) Patient Requires Transmission-Based No Precautions Safety Precautions NA Finger Stick Blood Sugar(mg/dl) (if 160 155 indicated): Blood Sugar Stated by Stated by Patient Patient Height and Weight Body Mass Index (BMI) 32.6 32.6 BMI Classification Obese Obese Vital Signs Temperature (97.8 F-99.1 F) 97.3 F L 96.0 F L Temperature Source Temporal Temporal Pulse Rate (60-100) 87 87 Pulse Location Monitor Monitor Respiratory Rate (12-18) 16 Respiratory rate source Observation Oxygen Delivery Method Room Air Blood Pressure (90/60-120/80) 135/71 H 134/74 H Blood Pressure Mean (mm Hg) 92 94 Source Monitor Monitor Position Sitting Semi-Fowlers Blood Pressure Location Left Arm Right Arm History Since Last Visit- (Skip if this is Patient's initial visit) Have you changed medications since your No No last visit? Any new allergies or adverse reactions No No Had a fall/change in ADL's that may No No increase risk of falls Signs or symptoms of abuse and/or No No neglect since last visit Have you been in the hospital since your No No last visit? Has dressing in place as prescribed Yes Yes Has compression in place as prescribed N/A Yes Has offloadiing in place as prescribed N/A N/A Experienced any changes in pain level or No No management Left Footwear Regular Shoe Regular Shoe Right Footwear Regular Shoe Regular Shoe Pain Scale: 0-10 Numeric Is Patient Pain Free? Yes Yes WC - Nurse 1 - General Ulcer Measurement Start: 09/15/21 11:06 Freq: Status: Active Protocol: Activity Type Activity Date Activity User E-Sign Co-Sign Detail Recorded Client Recorded Date Recorded By Document 09/15/21 11:06 [id number] 09/15/21 11:17 MW Document 09/24/21 08:22 KR [id number] 09/24/21 08:27 KR 09/15/21 09/24/21 11:06 08:22 Wound Center Nurse 1 # 2 right lateral plantar -Combined with other wound No -Current Size (cm) - Length 0.1 0.1 -Current Size (cm) - Width 0.1 0.1 -Current Size (cm) - Depth 0.1 0.1 -Total Square Cm 0.01 0.01 -Date of Last Picture (Recall this 09/15/21 field) -Photo Taken Yes -Epithelialization Small 1-33% -Tunneling No -Undermining/Tunneling No -Circular Undermining No -Exudate Amt None Present None Present -Wound Margin Flat & Intact Distinct, Outline Attached -Granulation Amt None Present (0 None Present (0 %) %) -Granulation Quality N/A -Slough/Fibrin Yes -Necrosis Amt Large (67-100%) -Necrotic Tissue Type Adherent Slough -Structure Exposed N/A -Texture (Melody-wound Skin Appearance) Assessed,Callus Assessed, Scarring -Moisture (Melody-wound Skin Appearance) No Abnormality, Assessed Assessed -Color (Melody-wound Skin Appearance) No Abnormality, No Abnormality, Assessed Assessed -Temperature (Melody-wound Skin No Abnormality No Abnormality Appearance) (Pt Warm) (Pt Warm) -Tenderness on Palpation (Melody-wound No No Skin Appearance) -Ulcer Cleansing Rinsed/ Rinsed/ Irrigated with Irrigated with Saline Saline -Foul Odor after Cleansing No No -Anesthetic Used 5% Lidocaine Gel #1 left lateral plantar -Combined with other wound No -Current Size (cm) - Length 0.1 0.1 -Current Size (cm) - Width 0.1 0.1 -Current Size (cm) - Depth 0.1 0.1 -Total Square Cm 0.01 0.01 -Date of Last Picture (Recall this 09/15/21 field) -Photo Taken Yes -Epithelialization None Present -Tunneling No -Undermining/Tunneling No -Circular Undermining No -Exudate Amt None Present -Wound Margin Flat & Intact Distinct, Outline Attached -Granulation Amt None Present (0 %) -Granulation Quality N/A -Slough/Fibrin Yes -Necrosis Amt Large (67-100%) -Necrotic Tissue Type Adherent Slough -Structure Exposed N/A -Texture (Melody-wound Skin Appearance) Assessed,Callus Assessed, Scarring -Moisture (Melody-wound Skin Appearance) No Abnormality, Assessed,Dry/ Assessed Scaly -Color (Melody-wound Skin Appearance) No Abnormality, No Abnormality, Assessed Assessed -Temperature (Melody-wound Skin No Abnormality No Abnormality Appearance) (Pt Warm) (Pt Warm) -Tenderness on Palpation (Melody-wound No No Skin Appearance) -Ulcer Cleansing Rinsed/ Rinsed/ Irrigated with Irrigated with Saline Saline -Foul Odor after Cleansing No No -Anesthetic Used 4% Lidocaine Solution,5% Lidocaine Gel Lower Limb Edema Present No WC - Nurse 2 - General Ulcer CM Notes Start: 09/15/21 11:06 Freq: Status: Active Protocol: Activity Type Activity Date Activity User E-Sign Co-Sign Detail Recorded Client Recorded Date Recorded By Document 09/15/21 11:21 [id number] 09/15/21 11:27 JF Document 09/24/21 08:38 MW [id number] 09/24/21 08:41 MW 09/15/21 09/24/21 11:21 08:38 Wound Center Nurse 2 # 2 right lateral plantar -Time 11:21 08:38 -Correct Patient Yes Yes -Correct Side, Site, Position Yes Yes -Correct Procedure Yes Yes -Procedure Performed Yes No -Type of Procedure Debridement -Clinical Debridement Subcutaneous -Tissue Removed Subcutaneous -Post Debridement (cm) - Length 0.4 0 -Post Debridement (cm) - Width 0.1 0 -Post Debridement (cm) - Depth 0.1 0 -Total Square (Post) (cm) 0.04 0 -Area of Debridement (cm) - Length 0.4 -Area of Debridement (cm) - Width 0.1 -Total Square (Area) (cm) 0.04 -Tunneling No No -Undermining/Tunneling No No -Circular Undermining No No -Wound/Ulcer Outcome Not Healed Healed- Epithelialized -Ulcer Cleansing Rinsed/ Irrigated with Saline -Foul Odor after Cleansing No -Bioengineered Tissue No -Bleeding Controlled with Pressure -Treatment Response Procedure Tolerated Well -Offloading No -Debridement - Subq, 1st 20sq cm No #1 left lateral plantar -Time 11:25 08:38 -Correct Patient Yes Yes -Correct Side, Site, Position Yes Yes -Correct Procedure Yes Yes -Procedure Performed Yes No -Type of Procedure Debridement -Clinical Debridement Subcutaneous -Tissue Removed Subcutaneous -Post Debridement (cm) - Length 0.5 -Post Debridement (cm) - Width 0.1 -Post Debridement (cm) - Depth 0.1 -Total Square (Post) (cm) 0.05 -Area of Debridement (cm) - Length 0.5 -Area of Debridement (cm) - Width 0.1 -Total Square (Area) (cm) 0.05 -Tunneling No -Undermining/Tunneling No -Circular Undermining No -Wound/Ulcer Outcome Not Healed Healed- Epithelialized -Ulcer Cleansing Rinsed/ Irrigated with Saline -Foul Odor after Cleansing No -Bioengineered Tissue No -Bleeding Controlled with Pressure -Treatment Response Procedure Tolerated Well -Offloading No -Debridement - Subq, 1st 20sq cm Yes Pain Scale: 0-10 Numeric Is Patient Pain Free? Yes Yes - Nurse 3 - General Ulcer D/C NN Start: 09/15/21 11:06 Freq: Status: Active Protocol: Activity Type Activity Date Activity User E-Sign Co-Sign Detail Recorded Client Recorded Date Recorded By Document 09/15/21 11:35 CHRISTINA [id number] 09/15/21 11:36 CHRISTINA 09/15/21 11:35 Wound Care Nurse 3 # 2 right lateral plantar -Ulcer Cleansing Rinsed/ Irrigated with Saline -Primary Dressing Applied Promogran Rita Matter -Primary Dressing Covered/Secured with Dry Gauze, Secured with Tape -Promogran Rita Matter 1 #1 left lateral plantar -Primary Dressing Covered/Secured with Dry Gauze, Secured with Tape Right -Tubular Bandage Single Layer -Size of Tubigrip Used Size E -Size E ($) 1 Left -Tubular Bandage Single Layer -Size of Tubigrip Used Size E -Size E ($) 1 Pain Scale: 0-10 Numeric Is Patient Pain Free? Yes WC - Visit Discharge Discharge Condition Stable Ambulatory Status Ambulatory Transportation Private Auto Accompanied by Assessment/Plan Assessment/Plan (1) Non-pressure chronic ulcer of other part of left foot with fat layer exposed: CODE(S): L97.522 - Non-pressure chronic ulcer of other part of left foot with fat layer exposed (2) Non-pressure chronic ulcer of other part of right foot with fat layer exposed: CODE(S): L97.512 - Non-pressure chronic ulcer of other part of right foot with fat layer exposed PLAN: Patient examined evaluated, all findings cussed with patient in detail. Clinically patient has no signs of infection. Wounds are healed at this time. Recommend continuation of use of fifth metatarsal head offloading pads and issues until we fit him and get dispensed diabetic shoes. I recommend hydrating the area daily with antibiotic ointment to prevent any for future fissuring or cracking. I recommend daily foot checks with tight blood glucose regulation and ambulation close shoe gear at all times. At this time we will continue offloading with reverse dancers pads and regular shoe gear. Patient will follow up in our private office. (3) Type 2 diabetes mellitus with diabetic polyneuropathy: CODE(S): E11.42 - Type 2 diabetes mellitus with diabetic polyneuropathy
[2021-09-24 08:49] VITALS: BMI 32.6
== END 2021-09-24 14:06 | disposition home or self-care (01) ==
LOC: WC 08:15
PROVIDERS: Visit Provider Podiatrist
DX: E11.621 Type 2 diabetes mellitus with foot ulcer (principal); L97.522 Non-pressure chronic ulcer of other part of left foot with fat layer exposed; L97.512 Non-pressure chronic ulcer of other part of right foot with fat layer exposed; E11.40 Type 2 diabetes mellitus with diabetic neuropathy, unspecified; Z79.84 Long term (current) use of oral hypoglycemic drugs; Z79.899 Other long term (current) drug therapy
CPT/HCPCS: 11042; 99213; G0463

== ENCOUNTER → 2022-02-16 | Outpatient (CLI) | payer MEDICARE, OTHER, SELFPAY ==
[2022-02-16 12:36] LABS: AST(SGOT) 16 U/L (15-37); Alanine Aminotransfer ALT/SGPT 26 U/L (16-61); Albumin, Serum 3.7 g/dL (3.2-5.0); Alkaline Phosphatase 63 U/L (45-117); Anion Gap 8 (5-15); BUN 15 mg/dL (7-18); BUN/Creat Ratio 16.7 RATIO (10-20); Calcium,Total 9.6 mg/dL (8.5-10.1); Chloride 102 mmol/L (98-107); Cholesterol 146 mg/dL (200); EST Glomerular Filtration Rate 89 mL/min (>60); Est Glom Filt Rate - Afr Amer 108 mL/min (>60); Globulin 3.7 g/dL (2.2-4.2); Glucose 98 mg/dL (74-106); High Density Lipoprotein 47 mg/dL; Potassium 4.4 mmol/L (3.5-5.1); Protein, Total 7.4 g/dL (6.4-8.2); Sodium Level 136 mmol/L (136-145); Triglycerides 152 mg/dL; Very Low Density Lipoprotein 30 mg/dL (5-40)
[2022-02-16 12:50] LABS: Microalbumin,Random Urine < 5.0 mg/L (NO RANGE EST.)
== END | disposition home or self-care (01) ==
LOC: MFPLAB 09:40
PROVIDERS: Visit Provider Nurse Practitioner Family
DX: E11.40 Type 2 diabetes mellitus with diabetic neuropathy, unspecified (principal); E78.00 Pure hypercholesterolemia, unspecified
CPT/HCPCS: 36415; 80053; 80061; 82043

== ENCOUNTER → 2023-03-03 | Outpatient (CLI) | payer MEDICARE, OTHER, SELFPAY ==
[2023-03-03 10:46] LABS: Hemoglobin A1c 7.2 % (3.8-5.6)
[2023-03-03 10:52] LABS: Microalbumin,Random Urine < 5.0 mg/L (NO RANGE EST.)
[2023-03-03 11:01] LABS: ALB/GLOB Ratio 1.1 RATIO (0.9-2.4); AST(SGOT) 18 U/L (15-37); Alanine Aminotransfer ALT/SGPT 36 U/L (16-61); Albumin, Serum 3.8 g/dL (3.2-5.0); Alkaline Phosphatase 62 U/L (45-117); Anion Gap 5 (5-15); BUN 22 mg/dL (7-18); BUN/Creat Ratio 24.4 RATIO (10-20); Chloride 101 mmol/L (98-107); Cholesterol 122 mg/dL (200); EST Glomerular Filtration Rate 89 mL/min (>60); Est Glom Filt Rate - Afr Amer 107 mL/min (>60); Globulin 3.4 g/dL (2.2-4.2); Glucose 116 mg/dL (74-106); High Density Lipoprotein 42 mg/dL; PSA,Total - Annual Screen 0.39 ng/mL (0.00-4.00); Potassium 4.5 mmol/L (3.5-5.1); Protein, Total 7.2 g/dL (6.4-8.2); Sodium Level 135 mmol/L (136-145); Triglycerides 154 mg/dL; Very Low Density Lipoprotein 31 mg/dL (5-40)
== END | disposition home or self-care (01) ==
LOC: MFPLAB 09:16
PROVIDERS: PCP Family Medicine; Visit Provider Family Medicine
DX: E11.40 Type 2 diabetes mellitus with diabetic neuropathy, unspecified (principal); Z12.5 Encounter for screening for malignant neoplasm of prostate
CPT/HCPCS: 36415; 80053; 80061; 82043; 82570; 83036; 84153; G0103

== ENCOUNTER → 2023-10-14 | Outpatient (CLI) | payer MEDICARE, OTHER, SELFPAY ==
--- NOTE | 2023-10-14 13:36 | CT_ITS ---
STUDY: CT BRAIN WITHOUT CONTRAST REASON FOR EXAM: Male, 68 years old. New onset headache. Family history of aneurysm and hypertension. RADIATION DOSAGE (If Supplied By Facility): CTDIvol = ( 44.99 ) mGy, DLP = ( 812.98 ) mGycm TECHNIQUE: Transaxial CT imaging of the brain was performed without administration of intravenous contrast material. Individualized dose optimization techniques were used for this CT. COMPARISON: No relevant priors. FINDINGS: Normal soft tissue structures. Normal calvarium. There is mild cerebral atrophy with widening of the extra-axial spaces and ventricular dilatation. Normal white matter tracts of the cerebral hemispheres. Normal basal ganglia and thalami. Normal brainstem. Normal cerebellum. There is no intracranial hemorrhage. There are no findings of an acute ischemic infarction. Atherosclerotic calcification of the vertebral arteries and cavernous portions of the internal carotid arteries bilaterally. Mild degree of mucosal thickening of the left maxillary sinus. CT/Brain/Head without Contrast IMPRESSION: Chronic involutional changes of the brain. Mild degree of mucosal thickening of the left maxillary sinus. Electronically Signed: Haja Garnett MD at 14:22 EDT ,
== END | disposition home or self-care (01) ==
LOC: CT 13:34
PROVIDERS: PCP Family Medicine; Referring Provider Family Medicine; Visit Provider Family Medicine
DX: R51.9 Headache, unspecified (principal)
CPT/HCPCS: 70450

== ENCOUNTER → 2024-07-20 | Outpatient (CLI) | payer MEDICARE, OTHER, SELFPAY ==
[2024-07-20 12:31] LABS: Absolute Lymphocyte Count 1.75 X10^3/uL (0.83-4.51); Absolute Neutrophil Count 5.8 X10^3/uL (2.0-7.7); Basophil# 0.08 X10^3/uL; Basophil% 0.9 % (0-1); Eosinophil# 0.33 X10^3/uL; Eosinophils% 3.8 % (0-5); Hematocrit 43.1 % (40-54); Hemoglobin 13.9 g/dL (13.0-16.5); Lymphocyte # 1.75 X10^3/ul (0.83-4.51); Lymphocyte % 19.9 % (19-41); Mean Corp Hgb Conc 32.3 g/dL (32-36); Mean Corpuscular Hgb 29.1 pg (27.0-32.0); Mean Corpuscular Volume 90.2 fL (80-94); Mean Platelet Vol. 9.9 fl (6.2-12.0); Monocyte# 0.78 X10^3/uL; Monocyte% 8.9 % (0-10); NRBC Flagged by Analyzer 0 % (0-5); Neutrophil # 5.78 X10^3/uL (2.7-7.7); Neutrophil % 65.7 % (47-70); Platelet Count 303 K/mm3 (150-450); RBC Distribution Width CV 12.7 % (11.6-14.6); Red Blood Count 4.78 M/mm3 (4.6-6.2); White Blood Count 8.8 K/mm3 (4.4-11.0)
[2024-07-20 12:57] LABS: ALB/GLOB Ratio 1.1 RATIO (0.9-2.4); AST(SGOT) 27 U/L (15-37); Alanine Aminotransfer ALT/SGPT 42 U/L (16-61); Albumin, Serum 4.1 g/dL (3.2-5.0); Alkaline Phosphatase 77 U/L (45-117); Anion Gap 9 (5-15); BUN 14 mg/dL (7-18); BUN/Creat Ratio 14.7 RATIO (10-20); Calcium,Total 9.2 mg/dL (8.5-10.1); Chloride 99 mmol/L (98-107); Cholesterol 173 mg/dL (200); Creatinine, Serum 0.95 mg/dL (0.70-1.30); EST Glomerular Filtration Rate 83 mL/min (>60); Est Glom Filt Rate - Afr Amer 100 mL/min (>60); Globulin 3.8 g/dL (2.2-4.2); Glucose 144 mg/dL (74-106); High Density Lipoprotein 49 mg/dL; PSA,Total - Annual Screen 0.49 ng/mL (0.00-4.00); Potassium 4.2 mmol/L (3.5-5.1); Protein, Total 7.9 g/dL (6.4-8.2); Sodium Level 135 mmol/L (136-145); Triglycerides 223 mg/dL; Very Low Density Lipoprotein 45 mg/dL (5-40)
[2024-07-22 20:11] LABS: Hemoglobin A1c 7.8 % (3.8-5.6)
== END | disposition home or self-care (01) ==
LOC: MTLAB 10:24
PROVIDERS: PCP Family Medicine; Referring Provider Family Medicine; Visit Provider Family Medicine
DX: E11.40 Type 2 diabetes mellitus with diabetic neuropathy, unspecified (principal); I10 Essential (primary) hypertension; E78.00 Pure hypercholesterolemia, unspecified; R53.83 Other fatigue; Z12.5 Encounter for screening for malignant neoplasm of prostate
CPT/HCPCS: 36415; 80053; 80061; 83036; 84153; 84443; 85025; G0103

== ENCOUNTER → 2024-08-31 | Outpatient (CLI) | payer MEDICARE, OTHER, SELFPAY ==
[2024-09-02 08:08] LABS: Rubeola IgG Ab > 300.0 AU/mL (Immune >16.4)
== END | disposition home or self-care (01) ==
LOC: MFPLAB 12:09
PROVIDERS: PCP Family Medicine; Referring Provider Family Medicine; Visit Provider Family Medicine
DX: Z71.85 Encounter for immunization safety counseling (principal)
CPT/HCPCS: 36415; 86765

== ENCOUNTER 2024-10-18 06:25 | Day surgery (SDC) | payer MEDICARE, OTHER, SELFPAY ==
[2024-10-18] VITALS (8 sets, daily range): BP systolic 117–157; BP diastolic 77–91; PULSE 64–73; RESP 16–18; TEMP 36.2–36.4; O2SAT 95–99; BMI 30.3
[2024-10-18] MEDS: Lactated Ringers 1,000 ML 15 ML IV (07:12)
--- NOTE | 2024-10-18 07:20 | H&P.OPEN ---
HPI - General General Chief Complaint: Surveillance colonoscopy HPI Narrative JENNIFER WALKER, is a 69 M who presents to [facility] for updated surveillance colonoscopy given a personal history of polyps. He reports previous colonoscopy [address] Diallo. To his recollection no polyps were identified at that exam. He reports no present issues with his bowels. There is a family history of colon cancer in his father with diagnosis coming in 5th or 6th decade of life. Patient reports that he completed prep in anticipation for today's procedure and that his output is now clear but he did struggle with some immediate post administration nausea and vomiting. [facility] Medical History (Updated 10/18/24 @ 07:[address] Odilon Reyes MD) Wears glasses Discoloration of skin High cholesterol Easy bruising Injury of head and neck Gastric reflux Non-smoker Neuropathy Family history of colon cancer in father Hx of colonic polyps Balanitis HTN (hypertension) Diabetes Home Medications ?Medication ?Instructions ?Recorded ?Last Taken ?Type ezetimibe 10 mg-simvastatin 20 mg 1 ea PO QHS 03/26/20 10/16/24 History tablet (Vytorin) mv-mn-folic 200 mcg-vit K 15 1 cap PO QDAY 08/02/24 10/16/24 History mcg-lutein 5 mg-zeaxanthin 1 mg capsule (PreserVision AREDS 2 Plus Multivit) ondansetron HCl 4 mg tablet 4 mg PO Q8H PRN nausea and vomiting 08/02/24 10/17/24 History semaglutide 0.25 mg or 0.5 mg (2 0.25 mg subcut QWEEK 08/02/24 10/08/24 History mg/1.5 mL) subcutaneous pen injector (Ozempic) metformin 1,000 mg tablet,extended 1,000 mg PO BID 10/16/24 10/16/24 History release 24hr (osmotic) Allergy/AdvReac Type Severity Reaction Status Date / Time tadalafil (From Cialis) AdvReac Myalgia Verified 10/18/24 06:53 Family History (Updated 08/02/24 @ 10:48 by Kareen Ascencio) Father Colon cancer Dx in his 40's Other Cancer Surgical History Hx of colonoscopy Social History (Updated 08/02/24 @ 10:48 by Kareen Ascencio) household members: spouse current occupational status: retired Smoking Status: Never smoker alcohol intake: former substance use type: does not use Past Medical/Surgical History Planned Operation Planned Operative Procedure(s): COLONOSCOPY Previous Hospitalizations/Surgeries HX Hospitalizations: No Any Problems With Anesthesia: No You/Your Family Experience Fever (Hyperthermia) With Anes: No Cholinesterase deficiency: No Cardiovascular Hx Hypertension: No Respiratory Hx Sleep Apnea: No Hx Respiratory Tract Infection/Cold (presently): No Do You Snore Loudly (louder than talking or can be heard): Yes Do You Often Feel Tired/ Fatigued/ Sleepy Dring Daytime?: No Has Anyone Observed You Stop Breathing During Sleep?: No Result (for STOP score): Negative Smoking Status: Never smoker Neurological Does patient have nerve stimulator: No Miscellaneous Recent Exposure to Contagious Disease: No Allergies tadalafil (From Zadby) Adverse Reaction (Verified 10/18/24 06:53) Myalgia Muscle soreness Discharge Is Pt Admitted From a Detention, or a Long Term: No Who Could Help: After D/C, Where Do you Plan to Go: Return Home Vital Signs Vital Signs Vital Signs: 10/18/24 06:54 10/18/24 06:54 Temperature 97.6 F L Temperature Source Temporal Pulse Rate 73 Respiratory Rate 18 Respiratory Pattern Normal Blood Pressure 157/91 H Blood Pressure Mean 113 Blood Pressure Source Monitor Blood Pressure Position Semi-Fowlers Blood Pressure Location Right Arm Pulse Ox 99 Oxygen Delivery Method Room Air Weight Weight: 202 lb 6.15 oz Body Mass Index (BMI) 30.3 Physical Exam Const alert, oriented x3 and no apparent distress Resp normal respiratory effort GI GI Narrative: Nondistended, soft, nontender to palpation x 4 quadrants Assessment & Plan Assessment/Plan (1) Hx of colonic polyps: PLAN: Patient is a 69-year-old male who presents for updated surveillance colonoscopy given history of colonic polyps and family history of colon cancer. He denies any present concerns with his GI habits. He confirms he has completed prep in anticipation of today's procedure. Procedure and post procedure expectations reviewed. Neither patient nor his family offer any questions. Will now proceed to endoscopy suite for colonoscopy as scheduled after confirming consents. Surgery Risks - Colonoscopy Risks Include but are not Limited To: Risks include but are not limited to: Bleeding, perforation requiring further surgery, inability to complete colonoscopy requiring barium enema.
--- NOTE | 2024-10-18 07:27 | PCM.PRE.AN2 ---
ASA Classification* ASA Classification ASA Classification: 2 Assessment & Plan Anesthesia* Anesthesia Assessment Anesthesia Assessment: Discussed sedation and/or anesthesia options, risks, benefits, and alternatives with patient/parents/legal guardian/POA. Questions invited. The patient/parents/legal guardian/POA seems to understand and agrees to proceed with anesthesia plan. Reviewed the physical assessment, medical history, allergy history and patient home medications list prior to surgery/procedure/anesthetic and documented any changes. Performed airway and anesthesia risk assessments. Anesthesia Type Anesthesia Type: MAC History Source History Obtained from:: Patient and Chart Anesthesia Focused Assessment* Temperature: 97.6 F Pulse Rate: 73 Blood Pressure: 157/91 Respiratory Rate: 18 Pulse Ox: 99 Oxygen Delivery Method: Room Air Airway Assessment Mouth opens: >3 cm Mallampati Score: I Teeth Condition: Chipped/Broken (Patient has several chipped teeth. They are tight.) and Missing (Patient has a couple missing teeth.) Neck Range of motion (ROM): Limited ROM Focused Labs Anesthesia Preop lab: CBC WBC 8.8 K/mm3 (4.4-11.0) 07/20/24 10:07/20/24 RBC 4.78 M/mm3 (4.6-6.2) 07/20/24 10:07/20/24 Hgb 13.9 g/dL (13.0-16.5) 07/20/24 10:07/20/24 Hct 43.1 % (40-54) 07/20/24 10:07/20/24 Plt Count 303 K/mm3 (150-450) 07/20/24 10:07/20/24 CHEMISTRY Potassium 4.2 mmol/L (3.5-5.1) 07/20/24 10:07/20/24 Sodium 135 mmol/L (136-145) L 07/20/24 10:07/20/24 BUN 14 mg/dL (7-18) 07/20/24 10:07/20/24 Creatinine 0.95 mg/dL (0.70-1.30) 07/20/24 10:07/20/24 Glucose 144 mg/dL (74-106) H 07/20/24 10:07/20/24 TSH 2.940 uIU/mL (0.358-3.740) 07/20/24 10:28 07/20/24 COAG Pre-Assessment Diagnosis/Proposed Procedure Planned Operative Procedure(s): COLONOSCOPY Anesthesia History 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 When Was Last Pacemaker Check QUESTION #4 FULL TEXT: You/Your Family Experience fever (hyperthermia) with Anesthesia Last Oral Intake Last Oral intake: Last Oral Intake NPO since 03:00 10/18/24 06:54 Meds taken in AM with sips of water? Meds patient instructed to take am of surgery Any additional information?: Yes NPO since: 03:00 (Patient finished prep at 3 AM.) PONV PONV - customer engagement manager: PONV - customer engagement manager Female No 10/16/24 15:43 HX of Motion Sickness No 10/16/24 15:43 HX of N/V After Surgery No 10/16/24 15:43 Non-Smoker Yes 10/16/24 15:43 Duration of Surgery greater No 10/16/24 15:43 than 60 minutes Number of Risk Factors 1 10/16/24 15:43 PONV Score Low Risk 10/16/24 15:43 Height & Weight Height & Weight: Anesthesia: Height & Weight Height 5 ft 8.5 in 10/18/24 06:54 Weight: 91.8 kg 10/18/24 06:54 Body Mass Index (BMI) 30.3 10/18/24 06:54 Respiratory Assessment Respiratory Assessment - customer engagement manager: Respiratory Tract Infection Hx - customer engagement manager Hx Respiratory Tract Infection No 10/18/24 07:20 STOP Sleep Apnea STOP Sleep Apnea - customer engagement manager: STOP Sleep Apnea - customer engagement manager Hx Hypertension No 10/18/24 07:20 Hx Sleep Apnea No 10/18/24 07:20 CPAP BIPAP Do you snore loudly (louder Yes 10/18/24 07:20 than talking or can be heard Do you often feel tired/ No 10/18/24 07:20 fatigued/ sleepy during daytime? Has anyone observed you stop No 10/18/24 07:20 breathing during sleep? STOP Results Negative 10/18/24 07:20 QUESTION #5 FULL TEXT : Do you snore loudly (louder than talking or can be heard through closed doors)? 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 Specify any problems Hx of Preganancy in last 3 N/A 10/16/24 15:43 Months Nurse Filling Out Transfusion VLEHMAN 10/16/24 15:43 & Questions: Date: 10/16/24 10/16/24 15:43 Time: 15:46 10/16/24 15:43 Patient unable to answer at this time (ie. confused, unrespo /Reproduction History /Reproductive History - customer engagement manager: /Reproductive Hx- customer engagement manager Hx Now Gestational Age (in weeks): EDC: Hx Hx Para Hx Section SAB Active Medications Active Medications: Current Medications Generic Name Dose Route Start Last Admin Trade Name Freq PRN Reason Stop Dose Admin Lactated Ringer's 1,000 mls @ 15 mls/hr 10/18/24 06:45 10/18/24 07:12 IV 15 mls/hr .Q48H NILSA Administration PFSH Medical History Wears glasses Discoloration of skin High cholesterol Easy bruising Injury of head and neck Gastric reflux Non-smoker Neuropathy Family history of colon cancer in father Hx of colonic polyps Balanitis HTN (hypertension) Diabetes Home Medications ?Medication ?Instructions ?Recorded ?Last Taken ?Type ezetimibe 10 mg-simvastatin 20 mg 1 ea PO QHS 03/26/20 10/16/24 History tablet (Vytorin) mv-mn-folic 200 mcg-vit K 15 1 cap PO QDAY 08/02/24 10/16/24 History mcg-lutein 5 mg-zeaxanthin 1 mg capsule (PreserVision AREDS 2 Plus Multivit) ondansetron HCl 4 mg tablet 4 mg PO Q8H PRN nausea and vomiting 08/02/24 10/17/24 History semaglutide 0.25 mg or 0.5 mg (2 0.25 mg subcut QWEEK 08/02/24 10/08/24 History mg/1.5 mL) subcutaneous pen injector (Ozempic) metformin 1,000 mg tablet,extended 1,000 mg PO BID 10/16/24 10/16/24 History release 24hr (osmotic) Allergy/AdvReac Type Severity Reaction Status Date / Time tadalafil (From REPPlis) AdvReac Myalgia Verified 10/18/24 06:53 Family History Father Colon cancer Dx in his 40's Other Cancer Surgical History (Updated 10/18/24 @ 07:[address] Jon Rod MD) Hx of colonoscopy Social History household members: spouse current occupational status: retired Smoking Status: Never smoker alcohol intake: former substance use type: does not use Review of Systems (Anesthesia) ROS Narrative System reviewed and no additional complaints, except as documented.
--- NOTE | 2024-10-18 07:30 | COLBX_PTH ---
PATIENT: JENNIFER WALKER LOC: EN U#:[id number] AGE/SX: 69/M ROOM: RE10/18/[address]: Dr. Odilon Reyes MD : 1955 BED: DIS: 10/18/2024 SPEC #: [id number] RECD: 10/18/24 10:15 STATUS: SASHA PAZ #: [id number] GAYATRI: 10/18/24 07:[address]: Odilon Reyes DEPT: SURGICAL PATHOLOGY RECD BY: Luis Bansal ENTERED: 10/18/24 11:45 SP TYPE: COLON BX OTHR DR: Enrique Lynch MD Tissues: A - Ascending colon B - Transverse colon Procedures: Surgery Specimen Level IV HEADER OPERATION: Colonoscopy, polypectomy PRE-OP DIAGNOSIS: History of colonic polyps TISSUE SUBMITTED: A- Ascending colon submucosal lipoma biopsy, B- Transverse polyp MICROSCOPIC DIAGNOSIS A. Ascending colon, submucosal lipoma, biopsy: * Colonic mucosa with focally dilated crypts B. Transverse colon, polyp, biopsy: * Colonic mucosa with focally dilated crypts MICROSCOPIC DESCRIPTION Slides are reviewed. GROSS DESCRIPTION A. Received in formalin in a container labeled with the patient's name, date of , and ascending colon submucosal lipoma are 2 chavez fragments of soft tissue measuring 0.2 x 0.2 x 0.2 cm and 0.3 x 0.3 x 0.3 cm. Submitted in toto in A1. B. Received in formalin in a container labeled with the patient's name, date of , and transverse polyp are multiple chavez-brown fragments of soft tissue and food/fecal debris measuring 0.8 x 0.7 x 0.2 cm in aggregate. Submitted in toto in B1. [facility] 10-18-2024 CPT:85545t4
[2024-10-18 07:33] LABS: Bedside Glucose 187 mg/dL (74-106)
--- NOTE | 2024-10-18 08:26 | PCM.POST.ANE ---
Anesthesia: Postop Eval I Current Vital Signs Temperature: 97.2 F Pulse Rate: 71 Blood Pressure: 126/82 Respiratory Rate: 16 Pulse Ox: 98 Oxygen Delivery Method: Room Air Assessment Airway patent: Yes Spontaneous unlabored respirations: Yes Mental status: Asleep nausea: No Vomiting: No Anesthesia Complication: No Fluid Hydration Crystalloid volume administer (ml): 700 Total IV fluid infused: 700 Progress Note Anesthesia document: Postop Eval 1 completed: Yes
--- NOTE | 2024-10-18 08:31 | OP.CCLET_ITS ---
10/18/2024 Enrique Lynch Md Re : Colonoscopy procedure for Girma Centeno Cris This procedure was performed on October. My impressions and recommendations are as follows: Impressions : - Medium-sized lipoma in the ascending colon. Biopsied. - One, non-bleeding polyp in the distal transverse colon, removed with a hot snare. Complete resection. Partial retrieval. - Diverticulosis in the sigmoid colon. No specimens collected. - The examination was otherwise normal on direct and retroflexion views. Recommendations : - Discharge patient to home (via wheelchair). - High fiber diet today. - No aspirin, ibuprofen, naproxen, or other non-steroidal anti-inflammatory drugs for 2 days after polyp removal. - Await pathology results. - Repeat colonoscopy date to be determined after pending pathology results are reviewed for surveillance based on pathology results. - Telephone my office for pathology results in 1 week. My findings are described in the full procedure note, which is enclosed. If I can be of further assistance, please feel free to contact me at Doctor phone number(s): , Work: . Sincerely, Odilon Reyes MD 10/18/2024 8:30:51 AM This report has been signed electronically.
--- NOTE | 2024-10-18 08:31 | OP.COLON_ITS ---
Patient Name: Girma Chan Procedure Date: 10/18/2024 7:35 AM Date of : 1955 Age: 69 Procedure: Colonoscopy Indications: High risk colon cancer surveillance: Personal history of colonic polyps, Family history of colon cancer in a first-degree relative before age 60 years Providers: Odilon Reyes MD Referring MD: Enrique Lynch Md Medicines: See the Anesthesia note for documentation of the administered medications Patient Profile: Last Colonoscopy: 5 years ago. Complications: No immediate complications. Estimated blood loss: Minimal. Procedure: Pre-Anesthesia Assessment: - The heart rate, respiratory rate, oxygen saturations, blood pressure, adequacy of pulmonary ventilation, and response to care were monitored throughout the procedure. After I obtained informed consent, the scope was passed under direct vision. Throughout the procedure, the patient's blood pressure, pulse, and oxygen saturations were monitored continuously. The was introduced through the anus and advanced to the cecum, identified by the appendiceal orifice, ileocecal valve and palpation. The colonoscopy was performed without difficulty. The patient tolerated the procedure well. The quality of the bowel preparation was adequate to identify polyps greater than 5 mm in size. Scope In: 7:45:02 AM Scope Withdrawal Time 0 hours 25 minutes 13 seconds Scope Out: 8:17:44 AM Total Procedure Duration Time 0 hours 32 minutes 42 seconds Findings: The perianal and digital rectal examinations were normal. There was a medium-sized lipoma, 20 mm in diameter, in the ascending colon. Biopsies were taken with a cold forceps for histology. Estimated blood loss was minimal. A non-bleeding polyp was found in the distal transverse colon. The polyp was semi-pedunculated. The polyp was removed with a hot snare. Resection was complete, but the polyp tissue was only partially retrieved. A few small-mouthed diverticula were found in the sigmoid colon. No biopsies or other specimens were collected for this exam. The exam was otherwise without abnormality on direct and retroflexion views. Impression: - Medium-sized lipoma in the ascending colon. Biopsied. - One, non-bleeding polyp in the distal transverse colon, removed with a hot snare. Complete resection. Partial retrieval. - Diverticulosis in the sigmoid colon. No specimens collected. - The examination was otherwise normal on direct and retroflexion views. Recommendation: - Discharge patient to home (via wheelchair). - High fiber diet today. - No aspirin, ibuprofen, naproxen, or other non-steroidal anti-inflammatory drugs for 2 days after polyp removal. - Await pathology results. - Repeat colonoscopy date to be determined after pending pathology results are reviewed for surveillance based on pathology results. - Telephone my office for pathology results in 1 week. Procedure Code(s): --- Professional --- 41740, Colonoscopy, flexible; with removal of tumor(s), polyp(s), or other lesion(s) by snare technique 95050, 59, Colonoscopy, flexible; with biopsy, single or multiple Diagnosis Code(s): --- Professional --- Z86.010, Personal history of colonic polyps D17.5, Benign lipomatous neoplasm of intra-abdominal organs D12.3, Benign neoplasm of transverse colon (hepatic flexure or splenic flexure) Z80.0, Family history of malignant neoplasm of digestive organs K57.30, Diverticulosis of large intestine without perforation or abscess without bleeding CPT copyright 2021 [employer]. All rights reserved. The codes documented in this report are preliminary and upon oil and gas recruiter review may be revised to meet current compliance requirements. Odilon Reyes MD 10/18/2024 8:30:51 AM This report has been signed electronically. Number of Addenda: 0 Note Initiated On: 10/18/2024 7:35 AM
--- NOTE | 2024-10-18 11:04 | PCM.POSTANE2 ---
Anesthesia Postop Eval I Sum Postop Eval Completion status Anesthesia document: Postop Eval 1 completed: Yes Anesthesia Postop Eval I Summary Anesthesia Postop Eval I Summary: Anesthesia Postop Eval I: Assessment Summary Airway patent Yes 10/18/24 08:28 [email or web address] Spontaneous unlabored Yes 10/18/24 08:28 [email or web address] respirations Mental status Asleep 10/18/24 08:28 [email or web address] nausea No 10/18/24 08:28 [email or web address] Vomiting No 10/18/24 08:28 [email or web address] Anesthesia Postop Eval I: Fluid Summary Crystalloid volume administer 700 10/18/24 08:28 [email or web address] (ml) Colloids volume administered ( ml) Blood Product volume administered (ml) Total IV fluid infused 700 10/18/24 08:28 [email or web address] Anesthesia Postop Eval I: Summary Notes Anesthesia Complication No 10/18/24 08:28 [email or web address] Anesthesia Complication Comment: Post-operative progress note Anesthesia: Postop Eval II Evaluation Mental status: Awake Pain Level: 0 nausea: No Vomiting: No
== END 2024-10-18 09:16 | disposition home or self-care (01) ==
LOC: EN 06:25 → AC 06:26
PROVIDERS: PCP Family Medicine; Referring Provider Family Medicine; Visit Provider Surgery
PROC: 0DJD8ZZ Inspection of Lower Intestinal Tract, Via Natural or Artificial Opening Endoscopic (ICD-10-PCS; CPT 45378; principal; 2024-10-18 07:25)
DX: Z12.11 Encounter for screening for malignant neoplasm of colon (principal); E11.40 Type 2 diabetes mellitus with diabetic neuropathy, unspecified; Z79.84 Long term (current) use of oral hypoglycemic drugs; Z79.85 Long-term (current) use of injectable non-insulin antidiabetic drugs; Z86.0100 Personal history of colon polyps, unspecified; I10 Essential (primary) hypertension; E78.00 Pure hypercholesterolemia, unspecified; K57.30 Diverticulosis of large intestine without perforation or abscess without bleeding; D17.5 Benign lipomatous neoplasm of intra-abdominal organs; K21.9 Gastro-esophageal reflux disease without esophagitis
CPT/HCPCS: 45385; 45380; 82962; 88305; J2405

== ENCOUNTER → 2025-04-16 | Outpatient (CLI) | payer MEDICARE, OTHER, SELFPAY | END | disposition home or self-care (01) | LOC: MFPLAB 12:34 | PROVIDERS: PCP Family Medicine; Visit Provider Family Medicine | DX: E11.40 Type 2 diabetes mellitus with diabetic neuropathy, unspecified (principal) | CPT/HCPCS: 36415; 86617 ==

== ENCOUNTER → 2025-04-23 | Outpatient (CLI) | payer MEDICARE, OTHER, SELFPAY | END | disposition home or self-care (01) | LOC: MTLAB 10:26 | PROVIDERS: PCP Family Medicine; Referring Provider Family Medicine; Visit Provider Family Medicine | DX: E11.40 Type 2 diabetes mellitus with diabetic neuropathy, unspecified (principal); W57.XXXA Bitten or stung by nonvenomous insect and other nonvenomous arthropods, initial encounter | CPT/HCPCS: 36415; 83036 ==